=== PATIENT | female | born 1995 | race Two or more races ===

== ENCOUNTER 2019-02-26 19:20 | Observation (INO) | payer OTHER ==
[2019-02-26] MEDS ORDERED: Sodium Chloride 0.9% 2.5 ML Syringe FLUSH PRN (19:47)
[2019-02-26] MEDS ORDERED: Sodium Chloride 0.9% 10 ML Syringe FLUSH PRN (19:47)
--- NOTE | 2019-02-26 19:49 | EDM.PDOC ---
ED HPI GENERAL MEDICAL PROBLEM - General Chief Complaint: General Stated Complaint: PT BODY SWOLLEN Time Seen by Provider: 02/26/19 19:49 Source of Information: Reports: Patient History Limitations: Reports: No Limitations - History of Present Illness INITIAL COMMENTS - FREE TEXT/NARRATIVE: HISTORY AND PHYSICAL: History of present illness: Patient is a 23-year-old female here with complaint of lower extremity swelling. She states swelling started about 1 month ago, she saw a provider in [place] and was started on lasix. She states they did an echo of her heart which was negative and had labs done but was not told any specific diagnosis or follow up. She states the lasix was upsetting her stomach so she stopped it 2 days ago and all the swelling came back. She also notes having a lot of joint pain recently. She reports her mom has RA and another autoimmune disease but does not recall what it is. Review of systems: As per history of present illness and below otherwise all systems reviewed and negative. Past medical history: As per history of present illness and as reviewed below otherwise noncontributory. Surgical history: As per history of present illness and as reviewed below otherwise noncontributory. Social history: No reported history of drug or alcohol abuse. Family history: As per history of present illness and as reviewed below otherwise noncontributory. Physical exam: General: Patient sitting comfortably in no acute distress and nontoxic appearing HEENT: Atraumatic, normocephalic, pupils reactive, negative for conjunctival pallor or scleral icterus, mucous membranes moist, throat clear, neck supple, nontender, trachea midline. No meningeal signs. Lungs: Clear to auscultation, breath sounds equal bilaterally, chest nontender. Heart: S1S2, regular, negative for clicks, rubs, or overt murmur. Abdomen: Soft, nondistended, nontender. Negative for masses or hepatosplenomegaly. Negative for costovertebral tenderness. No rigidity, rebound , guarding. Pelvis: Stable nontender. Genitourinary: Deferred. Rectal: Deferred. Extremities: 3+ Atraumatic, negative for cords or calf pain. Neurovascular unremarkable. Neuro: Awake, alert, oriented. Cranial nerves II through XII unremarkable. Cerebellum unremarkable. Motor and sensory unremarkable throughout. Exam nonfocal. Notes: Patient's swelling improved after elevating while in the ED Diagnostics: CBC, CMP, UA Therapeutics: 1L Normal Saline IV 20mg Lasix IV Prescriptions: None Impression: Lower extremity edema, proteinuria, PRAVEEN Plan: Discussed with Dr. Arreola, patient will be admitted to observation. Definitive disposition and diagnosis as appropriate pending reevaluation and review of above. Bilateral Feet Pain Score (Numeric/FACES): 5 - Related Data Allergies Allergy/AdvReac Type Severity Reaction Status Date / Time No Known Allergies Allergy Verified 02/26/19 19:39 Home Meds: Home Meds . [Unable to Verify Home Med List] 02/26/19 [History] Past Medical History - Past Health History Medical/Surgical History: Denies Medical/Surgical History Psychiatric History: Reports: Depression - Infectious Disease History Infectious Disease History: Reports: None Social & Family History - Family History Family Medical History: Noncontributory - Tobacco Use Smoking Status *Q: Unknown Ever Smoked - Caffeine Use Caffeine Use: Reports: None - Recreational Drug Use Recreational Drug Use: No ED ROS GENERAL - Review of Systems Review Of Systems: ROS reveals no pertinent complaints other than HPI. ED EXAM, GENERAL - Physical Exam Exam: See Below (see dictation) Course - Vital Signs Last Recorded V/S: Last Vital Signs Temp 98.7 F 02/26/19 19:40 Pulse 78 02/26/19 20:44 Resp 18 02/26/19 20:44 BP 144/96 H 02/26/19 20:44 Pulse Ox 100 02/26/19 20:44 - Orders/Labs/Meds Orders: Active Orders 24 hr Category Date Time Status CULTURE URINE [RM] Stat Lab 02/26/19 19:45 Received Sodium Chloride 0.9% [Normal Saline] 1,000 ml Med 02/26/19 20:51 Ordered IV STAT Sodium Chloride 0.9% [Saline Flush] Med 02/26/19 19:47 Active 10 ml FLUSH ASDIRECTED PRN Sodium Chloride 0.9% [Saline Flush] Med 02/26/19 19:47 Active 2.5 ml FLUSH ASDIRECTED PRN Saline Lock Insert [OM.PC] Stat Oth 02/26/19 19:47 Ordered Medication Orders Sodium Chloride (Normal Saline) 1,000 mls @ 999 mls/hr IV STAT ONE Stop: 02/26/19 21:51 Sodium Chloride (Saline Flush) 10 ml FLUSH ASDIRECTED PRN PRN Reason: Keep Vein Open Sodium Chloride (Saline Flush) 2.5 ml FLUSH ASDIRECTED PRN PRN Reason: Keep Vein Open Labs: Laboratory Tests 02/26/19 02/26/19 02/26/19 Range/Units 19:45 19:45 19:54 WBC 6.46 (4.0-11.0) K/uL RBC 3.05 L (4.30-5.90) M/uL Hgb 8.6 L (12.0-16.0) g/dL Hct 26.3 L (36.0-46.0) % MCV 86.2 (80.0-98.0) fL MCH 28.2 (27.0-32.0) pg MCHC 32.7 (31.0-37.0) g/dL RDW Std Deviation 43.2 (28.0-62.0) fl RDW Coeff of Analisa 14 (11.0-15.0) % Plt Count 146 L (150-400) K/uL MPV 11.80 (7.40-12.00) fL Neut % (Auto) 68.8 (48.0-80.0) % Lymph % (Auto) 24.8 (16.0-40.0) % [place] % (Auto) 5.4 (0.0-15.0) % Eos % (Auto) 0.8 (0.0-7.0) % Baso % (Auto) 0.2 (0.0-1.5) % Neut # (Auto) 4.5 (1.4-5.7) K/uL Lymph # (Auto) 1.6 (0.6-2.4) K/uL [place] # (Auto) 0.4 (0.0-0.8) K/uL Eos # (Auto) 0.1 (0.0-0.7) K/uL Baso # (Auto) 0.0 (0.0-0.1) K/uL Nucleated RBC % 0.0 /100WBC Nucleated RBCs # 0 K/uL Sodium (136-145) mmol/L Potassium (3.5-5.1) mmol/L Chloride (98-107) mmol/L Carbon Dioxide (21.0-32.0) mmol/L BUN (7.0-18.0) mg/dL Creatinine (0.6-1.0) mg/dL Est Cr Clr Drug Dosing mL/min Estimated GFR (MDRD) ml/min Glucose (74-106) mg/dL Calcium (8.5-10.1) mg/dL Total Bilirubin (0.2-1.0) mg/dL AST (15-37) IU/L ALT (14-63) IU/L Alkaline Phosphatase (46-116) U/L Total Protein (6.4-8.2) g/dL Albumin (3.4-5.0) g/dL Globulin (2.6-4.0) g/dL Albumin/Globulin Ratio (0.9-1.6) Urine Color YELLOW Urine Appearance CLOUDY Urine pH 5.5 (5.0-8.0) Ur Specific [place] >= 1.030 (1.001-1.035) Urine Protein >=300 H (NEGATIVE) mg/dL Urine Glucose (UA) NEGATIVE (NEGATIVE) mg/dL Urine Ketones NEGATIVE (NEGATIVE) mg/dL Urine Occult Blood LARGE H (NEGATIVE) Urine Nitrite NEGATIVE (NEGATIVE) Urine Bilirubin NEGATIVE (NEGATIVE) Urine Urobilinogen 0.2 (<2.0) EU/dL Ur Leukocyte Esterase TRACE H (NEGATIVE) Urine RBC 22-29 (0-2/HPF) Urine WBC 6-9 (0-5/HPF) Ur Epithelial Cells MODERATE (NONE-FEW) Urine Bacteria 2+ H (NEGATIVE) Urine Mucus LIGHT (NONE-MOD) Urine HCG, Qual NEGATIVE (NEGATIVE) 02/26/19 Range/Units 19:55 WBC (4.0-11.0) K/uL RBC (4.30-5.90) M/uL Hgb (12.0-16.0) g/dL Hct (36.0-46.0) % MCV (80.0-98.0) fL MCH (27.0-32.0) pg MCHC (31.0-37.0) g/dL RDW Std Deviation (28.0-62.0) fl RDW Coeff of Analisa (11.0-15.0) % Plt Count (150-400) K/uL MPV (7.40-12.00) fL Neut % (Auto) (48.0-80.0) % Lymph % (Auto) (16.0-40.0) % [place] % (Auto) (0.0-15.0) % Eos % (Auto) (0.0-7.0) % Baso % (Auto) (0.0-1.5) % Neut # (Auto) (1.4-5.7) K/uL Lymph # (Auto) (0.6-2.4) K/uL [place] # (Auto) (0.0-0.8) K/uL Eos # (Auto) (0.0-0.7) K/uL Baso # (Auto) (0.0-0.1) K/uL Nucleated RBC % /100WBC Nucleated RBCs # K/uL Sodium 139 (136-145) mmol/L Potassium 4.7 (3.5-5.1) mmol/L Chloride 109 H (98-107) mmol/L Carbon Dioxide 23.4 (21.0-32.0) mmol/L BUN 36 H (7.0-18.0) mg/dL Creatinine 1.5 H (0.6-1.0) mg/dL Est Cr Clr Drug Dosing 41.41 mL/min Estimated GFR (MDRD) 42.7 ml/min Glucose 91 (74-106) mg/dL Calcium 8.3 L (8.5-10.1) mg/dL Total Bilirubin 0.5 (0.2-1.0) mg/dL AST 27 (15-37) IU/L ALT 18 (14-63) IU/L Alkaline Phosphatase 52 (46-116) U/L Total Protein 7.3 (6.4-8.2) g/dL Albumin 2.8 L (3.4-5.0) g/dL Globulin 4.5 H (2.6-4.0) g/dL Albumin/Globulin Ratio 0.6 L (0.9-1.6) Urine Color Urine Appearance Urine pH (5.0-8.0) Ur Specific [place] (1.001-1.035) Urine Protein (NEGATIVE) mg/dL Urine Glucose (UA) (NEGATIVE) mg/dL Urine Ketones (NEGATIVE) mg/dL Urine Occult Blood (NEGATIVE) Urine Nitrite (NEGATIVE) Urine Bilirubin (NEGATIVE) Urine Urobilinogen (<2.0) EU/dL Ur Leukocyte Esterase (NEGATIVE) Urine RBC (0-2/HPF) Urine WBC (0-5/HPF) Ur Epithelial Cells (NONE-FEW) Urine Bacteria (NEGATIVE) Urine Mucus (NONE-MOD) Urine HCG, Qual (NEGATIVE) Meds: Medications Generic Name Dose Route Start Last Admin Trade Name Robbin PRN Reason Stop Dose Admin Sodium Chloride 1,000 mls @ 999 mls/hr 02/26/19 20:51 Normal Saline IV 02/26/19 21:51 STAT ONE Sodium Chloride 10 ml 02/26/19 19:47 Saline Flush FLUSH ASDIRECTED PRN Keep Vein Open Sodium Chloride 2.5 ml 02/26/19 19:47 Saline Flush FLUSH ASDIRECTED PRN Keep Vein Open Departure - Departure Time of Disposition: 21:10 Disposition: Refer to Observation Condition: Good Clinical Impression: Proteinuria, PRAVEEN (acute kidney injury), Lower extremity edema - Discharge Information Referrals: PCP,None [Primary Care Provider] - Forms: ED Department Discharge - My Orders Last 24 Hours: My Active Orders 02/26/19 19:45 CULTURE URINE [RM] Stat 02/26/19 19:47 Sodium Chloride 0.9% [Saline Flush] 10 ml FLUSH ASDIRECTED PRN Sodium Chloride 0.9% [Saline Flush] 2.5 ml FLUSH ASDIRECTED PRN Saline Lock Insert [OM.PC] Stat 02/26/19 20:51 Sodium Chloride 0.9% [Normal Saline] 1,000 ml IV STAT - Assessment/Plan Last 24 Hours: My Active Orders 02/26/19 19:45 CULTURE URINE [RM] Stat 02/26/19 19:47 Sodium Chloride 0.9% [Saline Flush] 10 ml FLUSH ASDIRECTED PRN Sodium Chloride 0.9% [Saline Flush] 2.5 ml FLUSH ASDIRECTED PRN Saline Lock Insert [OM.PC] Stat 02/26/19 20:51 Sodium Chloride 0.9% [Normal Saline] 1,000 ml IV STAT
--- NOTE | 2019-02-26 20:39 | CR ---
HISTORY: Bilateral leg swelling. COMPARISON: None available FINDINGS: A portable erect AP view of the chest was obtained at 20/20 hours. The lungs are clear. No focal or diffuse infiltrates are present. The heart is normal in size. The mediastinum is normal in appearance. The osseous structures are normal in appearance for the patient`s age. IMPRESSION: Normal portable chest single view. Dictated by Christian Goodson MD @ Feb 26 2019 8:37PM Signed by Dr. Christian Goodson @ Feb 26 2019 8:38PM
[2019-02-26] MEDS ORDERED: Sodium Chloride 0.9% 1,000 ML IV ONE (20:51)
[2019-02-26] MEDS ORDERED: Furosemide 40 MG/4 ML VIAL IVPUSH ONE (21:04)
[2019-02-27] MEDS: cefTRIAXone 1 GM in Premix Bag 1 BAG IV SCH (08:50)
[2019-02-27] MEDS ORDERED: Pantoprazole 40 MG in Sodium Chloride 0.9% 100 ML IVPUSH SCH (09:15)
[2019-02-27] MEDS: Pantoprazole 40 MG Vial IV SCH (09:57)
--- NOTE | 2019-02-27 16:43 | PCM.HP ---
H&P History of Present Illness - General Date of Service: 02/27/19 Admit Problem/Dx: Admission Diagnosis/Problem Admission Diagnosis/Problem Proteinuria - History of Present Illness Initial Comments - Free Text/Narative: 23 y/o female with no significant PMH presenting to the ER complaining of worsening lower extremity edema and joint pain in her hands predominantly. Patient states that for the past 1 month she has been noticing her legs getting more swollen. In addition, she endorses a family history of rheumatoid arthritis in her mother. She is endorsing gradual loss of hair over the past few months, myalgias and worsening hand joint pain, swelling. No headaches, change in vision, chest pain, dyspnea, abdominal pain, dysuria, diarrhea, blood in stool. No rashes on face or body. Denies any history of cancer. Bilateral Feet Pain Score (Numeric/FACES): 0 - Related Data Allergies/Adverse Reactions: Allergies Allergy/AdvReac Type Severity Reaction Status Date / Time No Known Allergies Allergy Verified 02/27/19 08:54 Home Medications: Home Meds Furosemide 40 mg PO DAILY 02/27/19 [History] Lisinopril 5 mg PO DAILY 02/27/19 [History] Potassium Chloride [Klor-Con M20] 20 meq PO DAILY 02/27/19 [History] Past Medical History - Past Health History Medical/Surgical History: Denies Medical/Surgical History Musculoskeletal History: Reports: Other (See Below) Other Musculoskeletal History: joint pain in her hands Psychiatric History: Reports: Depression - Infectious Disease History Infectious Disease History: Reports: None - Past Surgical History HEENT Surgical History: Reports: Other (See Below) Other HEENT Surgeries/Procedures: nose reconstruction Social & Family History - Family History Family Medical History: Noncontributory - Tobacco Use Smoking Status *Q: Never Smoker Second Hand Smoke Exposure: No - Caffeine Use Caffeine Use: Reports: Coffee, Energy Drinks, Soda, Tea - Alcohol Use Days Per Week of Alcohol Use: 1 Number of Drinks Per Day: 5 Total Drinks Per Week: 5 - Recreational Drug Use Recreational Drug Use: No H&P Review of Systems - Review of Systems: Review Of Systems: ROS reveals no pertinent complaints other than HPI. Exam - Exam Exam: See Below - Vital Signs Vital Signs: Last Vital Signs Temp 37.7 C 02/27/19 16:00 Pulse 79 06/27/19 16:00 Resp 15 02/27/19 16:00 BP 131/86 02/27/19 16:00 Pulse Ox 99 02/27/19 16:00 Weight: 49.1 kg - Exam General: Alert, Oriented, Cooperative HEENT: Conjunctiva Clear, Other (pale conjunctiva) Lungs: Clear to Auscultation, Normal Respiratory Effort. No: Crackles, Wheezing Cardiovascular: Regular Rate, Regular Rhythm. No: Systolic Murmur, Diastolic Murmur GI/Abdominal Exam: Normal Bowel Sounds, Soft, Non-Tender, No Distention Back Exam: Normal Inspection Extremities: Other (1+ pitting edema bilaterally up to knees, no rash) Skin: Warm, Dry Neuro Extensive - Mental Status: Alert, Oriented x3 - Patient Data Lab Results Last 24 hrs: Laboratory Results - last 24 hr 02/26/19 02/26/19 02/26/19 Range/Units 19:45 19:45 19:54 WBC 6.46 (4.0-11.0) K/uL RBC 3.05 L (4.30-5.90) M/uL Hgb 8.6 L (12.0-16.0) g/dL Hct 26.3 L (36.0-46.0) % MCV 86.2 (80.0-98.0) fL MCH 28.2 (27.0-32.0) pg MCHC 32.7 (31.0-37.0) g/dL RDW Std Deviation 43.2 (28.0-62.0) fl RDW Coeff of Analisa 14 (11.0-15.0) % Plt Count 146 L (150-400) K/uL MPV 11.80 (7.40-12.00) fL Neut % (Auto) 68.8 (48.0-80.0) % Lymph % (Auto) 24.8 (16.0-40.0) % [place] % (Auto) 5.4 (0.0-15.0) % Eos % (Auto) 0.8 (0.0-7.0) % Baso % (Auto) 0.2 (0.0-1.5) % Neut # (Auto) 4.5 (1.4-5.7) K/uL Lymph # (Auto) 1.6 (0.6-2.4) K/uL Flagler # (Auto) 0.4 (0.0-0.8) K/uL Eos # (Auto) 0.1 (0.0-0.7) K/uL Baso # (Auto) 0.0 (0.0-0.1) K/uL Nucleated RBC % 0.0 /100WBC Nucleated RBCs # 0 K/uL Smear Path Review ESR (0-19) mm/hr Sodium (136-145) mmol/L Potassium (3.5-5.1) mmol/L Chloride (98-107) mmol/L Carbon Dioxide (21.0-32.0) mmol/L BUN (7.0-18.0) mg/dL Creatinine (0.6-1.0) mg/dL Est Cr Clr Drug Dosing mL/min Estimated GFR (MDRD) ml/min Glucose (74-106) mg/dL Calcium (8.5-10.1) mg/dL Iron (50-175) ug/dL TIBC (250-450) ug/dL % Saturation (20-55) % Ferritin (8-252) ng/mL Total Bilirubin (0.2-1.0) mg/dL AST (15-37) IU/L ALT (14-63) IU/L Alkaline Phosphatase (46-116) U/L Lactate Dehydrogenase (81-234) U/L Creatine Kinase (26-308) U/L C-Reactive Protein (0.00-0.90) mg/dL Total Protein (6.4-8.2) g/dL Albumin (3.4-5.0) g/dL Globulin (2.6-4.0) g/dL Albumin/Globulin Ratio (0.9-1.6) Urine Color YELLOW Urine Appearance CLOUDY Urine pH 5.5 (5.0-8.0) Ur Specific Thornton >= 1.030 (1.001-1.035) Urine Protein >=300 H (NEGATIVE) mg/dL Urine Glucose (UA) NEGATIVE (NEGATIVE) mg/dL Urine Ketones NEGATIVE (NEGATIVE) mg/dL Urine Occult Blood LARGE H (NEGATIVE) Urine Nitrite NEGATIVE (NEGATIVE) Urine Bilirubin NEGATIVE (NEGATIVE) Urine Urobilinogen 0.2 (<2.0) EU/dL Ur Leukocyte Esterase TRACE H (NEGATIVE) Urine RBC 22-29 (0-2/HPF) Urine WBC 6-9 (0-5/HPF) Ur Epithelial Cells MODERATE (NONE-FEW) Urine Bacteria 2+ H (NEGATIVE) Urine Mucus LIGHT (NONE-MOD) Urine HCG, Qual NEGATIVE (NEGATIVE) Rheumatoid Factor Scrn Rheumatoid Factor Titer Blood Type Antibody Screen Prewarmed Antibody Srcn Antibody Identification Cold Antibody Screen ROGER, IgG Interpret (NEGATIVE) ROGER, Poly Interpret (NEGATIVE) Crossmatch 02/26/19 02/26/19 02/27/19 Range/Units 19:55 19:55 04:45 WBC (4.0-11.0) K/uL RBC (4.30-5.90) M/uL Hgb (12.0-16.0) g/dL Hct (36.0-46.0) % MCV (80.0-98.0) fL MCH (27.0-32.0) pg MCHC (31.0-37.0) g/dL RDW Std Deviation (28.0-62.0) fl RDW Coeff of Analisa (11.0-15.0) % Plt Count (150-400) K/uL MPV (7.40-12.00) fL Neut % (Auto) (48.0-80.0) % Lymph % (Auto) (16.0-40.0) % Flagler % (Auto) (0.0-15.0) % Eos % (Auto) (0.0-7.0) % Baso % (Auto) (0.0-1.5) % Neut # (Auto) (1.4-5.7) K/uL Lymph # (Auto) (0.6-2.4) K/uL Flagler # (Auto) (0.0-0.8) K/uL Eos # (Auto) (0.0-0.7) K/uL Baso # (Auto) (0.0-0.1) K/uL Nucleated RBC % /100WBC Nucleated RBCs # K/uL Smear Path Review ESR > 140 H (0-19) mm/hr Sodium 139 (136-145) mmol/L Potassium 4.7 (3.5-5.1) mmol/L Chloride 109 H (98-107) mmol/L Carbon Dioxide 23.4 (21.0-32.0) mmol/L BUN 36 H (7.0-18.0) mg/dL Creatinine 1.5 H (0.6-1.0) mg/dL Est Cr Clr Drug Dosing 41.41 mL/min Estimated GFR (MDRD) 42.7 ml/min Glucose 91 (74-106) mg/dL Calcium 8.3 L (8.5-10.1) mg/dL Iron (50-175) ug/dL TIBC (250-450) ug/dL % Saturation (20-55) % Ferritin (8-252) ng/mL Total Bilirubin 0.5 (0.2-1.0) mg/dL AST 27 (15-37) IU/L ALT 18 (14-63) IU/L Alkaline Phosphatase 52 (46-116) U/L Lactate Dehydrogenase (81-234) U/L Creatine Kinase 50 (26-308) U/L C-Reactive Protein (0.00-0.90) mg/dL Total Protein 7.3 (6.4-8.2) g/dL Albumin 2.8 L (3.4-5.0) g/dL Globulin 4.5 H (2.6-4.0) g/dL Albumin/Globulin Ratio 0.6 L (0.9-1.6) Urine Color Urine Appearance Urine pH (5.0-8.0) Ur Specific Thornton (1.001-1.035) Urine Protein (NEGATIVE) mg/dL Urine Glucose (UA) (NEGATIVE) mg/dL Urine Ketones (NEGATIVE) mg/dL Urine Occult Blood (NEGATIVE) Urine Nitrite (NEGATIVE) Urine Bilirubin (NEGATIVE) Urine Urobilinogen (<2.0) EU/dL Ur Leukocyte Esterase (NEGATIVE) Urine RBC (0-2/HPF) Urine WBC (0-5/HPF) Ur Epithelial Cells (NONE-FEW) Urine Bacteria (NEGATIVE) Urine Mucus (NONE-MOD) Urine HCG, Qual (NEGATIVE) Rheumatoid Factor Scrn Rheumatoid Factor Titer Blood Type Antibody Screen Prewarmed Antibody Srcn Antibody Identification Cold Antibody Screen ROGER, IgG Interpret (NEGATIVE) ROGER, Poly Interpret (NEGATIVE) Crossmatch 02/27/19 02/27/19 02/27/19 Range/Units 04:45 04:45 04:45 WBC 4.58 (4.0-11.0) K/uL RBC 2.30 L (4.30-5.90) M/uL Hgb 6.6 L (12.0-16.0) g/dL Hct 20.3 L (36.0-46.0) % MCV 88.3 (80.0-98.0) fL MCH 28.7 (27.0-32.0) pg MCHC 32.5 (31.0-37.0) g/dL RDW Std Deviation 44.3 (28.0-62.0) fl RDW Coeff of Analisa 14 (11.0-15.0) % Plt Count 114 L (150-400) K/uL MPV 12.40 H (7.40-12.00) fL Neut % (Auto) 65.3 (48.0-80.0) % Lymph % (Auto) 27.7 (16.0-40.0) % Flag[place] % (Auto) 5.9 (0.0-15.0) % Eos % (Auto) 0.9 (0.0-7.0) % Baso % (Auto) 0.2 (0.0-1.5) % Neut # (Auto) 3.0 (1.4-5.7) K/uL Lymph # (Auto) 1.3 (0.6-2.4) K/uL Flagler # (Auto) 0.3 (0.0-0.8) K/uL Eos # (Auto) 0.0 (0.0-0.7) K/uL Baso # (Auto) 0.0 (0.0-0.1) K/uL Nucleated RBC % 0.0 /100WBC Nucleated RBCs # 0 K/uL Smear Path Review ESR (0-19) mm/hr Sodium (136-145) mmol/L Potassium (3.5-5.1) mmol/L Chloride (98-107) mmol/L Carbon Dioxide (21.0-32.0) mmol/L BUN (7.0-18.0) mg/dL Creatinine (0.6-1.0) mg/dL Est Cr Clr Drug Dosing mL/min Estimated GFR (MDRD) ml/min Glucose (74-106) mg/dL Calcium (8.5-10.1) mg/dL Iron (50-175) ug/dL TIBC (250-450) ug/dL % Saturation (20-55) % Ferritin (8-252) ng/mL Total Bilirubin (0.2-1.0) mg/dL AST (15-37) IU/L ALT (14-63) IU/L Alkaline Phosphatase (46-116) U/L Lactate Dehydrogenase (81-234) U/L Creatine Kinase (26-308) U/L C-Reactive Protein < 0.20 (0.00-0.90) mg/dL Total Protein (6.4-8.2) g/dL Albumin (3.4-5.0) g/dL Globulin (2.6-4.0) g/dL Albumin/Globulin Ratio (0.9-1.6) Urine Color Urine Appearance Urine pH (5.0-8.0) Ur Specific Thornton (1.001-1.035) Urine Protein (NEGATIVE) mg/dL Urine Glucose (UA) (NEGATIVE) mg/dL Urine Ketones (NEGATIVE) mg/dL Urine Occult Blood (NEGATIVE) Urine Nitrite (NEGATIVE) Urine Bilirubin (NEGATIVE) Urine Urobilinogen (<2.0) EU/dL Ur Leukocyte Esterase (NEGATIVE) Urine RBC (0-2/HPF) Urine WBC (0-5/HPF) Ur Epithelial Cells (NONE-FEW) Urine Bacteria (NEGATIVE) Urine Mucus (NONE-MOD) Urine HCG, Qual (NEGATIVE) Rheumatoid Factor Scrn POSITIVE H Rheumatoid Factor Titer 1:2 Blood Type Antibody Screen Prewarmed Antibody Srcn Antibody Identification Cold Antibody Screen ROGER, IgG Interpret (NEGATIVE) ROGER, Poly Interpret (NEGATIVE) Crossmatch 02/27/19 02/27/19 02/27/19 Range/Units 04:45 04:45 04:45 WBC (4.0-11.0) K/uL RBC (4.30-5.90) M/uL Hgb (12.0-16.0) g/dL Hct (36.0-46.0) % MCV (80.0-98.0) fL MCH (27.0-32.0) pg MCHC (31.0-37.0) g/dL RDW Std Deviation (28.0-62.0) fl RDW Coeff of Analisa (11.0-15.0) % Plt Count (150-400) K/uL MPV (7.40-12.00) fL Neut % (Auto) (48.0-80.0) % Lymph % (Auto) (16.0-40.0) % [place] % (Auto) (0.0-15.0) % Eos % (Auto) (0.0-7.0) % Baso % (Auto) (0.0-1.5) % Neut # (Auto) (1.4-5.7) K/uL Lymph # (Auto) (0.6-2.4) K/uL [place]ler # (Auto) (0.0-0.8) K/uL Eos # (Auto) (0.0-0.7) K/uL Baso # (Auto) (0.0-0.1) K/uL Nucleated RBC % /100WBC Nucleated RBCs # K/uL Smear Path Review SENT TO PATHOLOGY ESR (0-19) mm/hr Sodium 142 (136-145) mmol/L Potassium 4.6 (3.5-5.1) mmol/L Chloride 113 H (98-107) mmol/L Carbon Dioxide 21.6 (21.0-32.0) mmol/L BUN 33 H (7.0-18.0) mg/dL Creatinine 1.2 H (0.6-1.0) mg/dL Est Cr Clr Drug Dosing 51.92 mL/min Estimated GFR (MDRD) 55.2 ml/min Glucose 95 (74-106) mg/dL Calcium 7.4 L (8.5-10.1) mg/dL Iron 30 L (50-175) ug/dL TIBC 172 L (250-450) ug/dL % Saturation 17.44 L (20-55) % Ferritin 162 (8-252) ng/mL Total Bilirubin 0.3 (0.2-1.0) mg/dL AST 16 (15-37) IU/L ALT 12 L (14-63) IU/L Alkaline Phosphatase 47 (46-116) U/L Lactate Dehydrogenase (81-234) U/L Creatine Kinase (26-308) U/L C-Reactive Protein (0.00-0.90) mg/dL Total Protein 5.4 L (6.4-8.2) g/dL Albumin 2.0 L (3.4-5.0) g/dL Globulin 3.4 (2.6-4.0) g/dL Albumin/Globulin Ratio 0.6 L (0.9-1.6) Urine Color Urine Appearance Urine pH (5.0-8.0) Ur Specific Thornton (1.001-1.035) Urine Protein (NEGATIVE) mg/dL Urine Glucose (UA) (NEGATIVE) mg/dL Urine Ketones (NEGATIVE) mg/dL Urine Occult Blood (NEGATIVE) Urine Nitrite (NEGATIVE) Urine Bilirubin (NEGATIVE) Urine Urobilinogen (<2.0) EU/dL Ur Leukocyte Esterase (NEGATIVE) Urine RBC (0-2/HPF) Urine WBC (0-5/HPF) Ur Epithelial Cells (NONE-FEW) Urine Bacteria (NEGATIVE) Urine Mucus (NONE-MOD) Urine HCG, Qual (NEGATIVE) Rheumatoid Factor Scrn Rheumatoid Factor Titer Blood Type Antibody Screen Prewarmed Antibody Srcn Antibody Identification Cold Antibody Screen ROGER, IgG Interpret (NEGATIVE) ROGER, Poly Interpret (NEGATIVE) Crossmatch 02/27/19 02/27/19 Range/Units 04:45 08:00 WBC (4.0-11.0) K/uL RBC (4.30-5.90) M/uL Hgb (12.0-16.0) g/dL Hct (36.0-46.0) % MCV (80.0-98.0) fL MCH (27.0-32.0) pg MCHC (31.0-37.0) g/dL RDW Std Deviation (28.0-62.0) fl RDW Coeff of Analisa (11.0-15.0) % Plt Count (150-400) K/uL MPV (7.40-12.00) fL Neut % (Auto) (48.0-80.0) % Lymph % (Auto) (16.0-40.0) % [place] % (Auto) (0.0-15.0) % Eos % (Auto) (0.0-7.0) % Baso % (Auto) (0.0-1.5) % Neut # (Auto) (1.4-5.7) K/uL Lymph # (Auto) (0.6-2.4) K/uL [place] # (Auto) (0.0-0.8) K/uL Eos # (Auto) (0.0-0.7) K/uL Baso # (Auto) (0.0-0.1) K/uL Nucleated RBC % /100WBC Nucleated RBCs # K/uL Smear Path Review ESR (0-19) mm/hr Sodium (136-145) mmol/L Potassium (3.5-5.1) mmol/L Chloride (98-107) mmol/L Carbon Dioxide (21.0-32.0) mmol/L BUN (7.0-18.0) mg/dL Creatinine (0.6-1.0) mg/dL Est Cr Clr Drug Dosing mL/min Estimated GFR (MDRD) ml/min Glucose (74-106) mg/dL Calcium (8.5-10.1) mg/dL Iron (50-175) ug/dL TIBC (250-450) ug/dL % Saturation (20-55) % Ferritin (8-252) ng/mL Total Bilirubin (0.2-1.0) mg/dL AST (15-37) IU/L ALT (14-63) IU/L Alkaline Phosphatase (46-116) U/L Lactate Dehydrogenase 292 H (81-234) U/L Creatine Kinase (26-308) U/L C-Reactive Protein (0.00-0.90) mg/dL Total Protein (6.4-8.2) g/dL Albumin (3.4-5.0) g/dL Globulin (2.6-4.0) g/dL Albumin/Globulin Ratio (0.9-1.6) Urine Color Urine Appearance Urine pH (5.0-8.0) Ur Specific Thornton (1.001-1.035) Urine Protein (NEGATIVE) mg/dL Urine Glucose (UA) (NEGATIVE) mg/dL Urine Ketones (NEGATIVE) mg/dL Urine Occult Blood (NEGATIVE) Urine Nitrite (NEGATIVE) Urine Bilirubin (NEGATIVE) Urine Urobilinogen (<2.0) EU/dL Ur Leukocyte Esterase (NEGATIVE) Urine RBC (0-2/HPF) Urine WBC (0-5/HPF) Ur Epithelial Cells (NONE-FEW) Urine Bacteria (NEGATIVE) Urine Mucus (NONE-MOD) Urine HCG, Qual (NEGATIVE) Rheumatoid Factor Scrn Rheumatoid Factor Titer Blood Type O POSITIVE Antibody Screen POSITIVE Prewarmed Antibody Srcn POSITIVE Antibody Identification Cancelled Cold Antibody Screen POSITIVE ROGER, IgG Interpret POSITIVE (NEGATIVE) ROGER, Poly Interpret POSITIVE (NEGATIVE) Crossmatch See Detail Result Diagrams: 02/27/19 04:45 02/27/19 04:45 Can Results Last 24 hrs: Microbiology 02/27/19 13:50 Stool Occult Blood (CAN) - Final Stool / Feces NEGATIVE OCCULT BLOOD REFERENCE RANGE: NEGATIVE Problem List Initiated/Reviewed/Updated: Yes Orders Last 24hrs: Active Orders 24 hr Category Date Time Status Admission Status [Patient Status] [ADT] Stat ADT 02/26/19 21:11 Active Antiembolic Devices [RC] Q12H Care 02/26/19 23:40 Active Daily Weight [Height and Weight] [RC] DAILY Care 02/27/19 09:06 Active Oxygen Therapy [RC] PRN Care 02/26/19 23:40 Active Up ad Rachel [RC] ASDIRECTED Care 02/26/19 23:40 Active VTE/DVT Education [RC] PER UNIT ROUTINE Care 02/26/19 23:40 Active Verify Patient Consent Obtain [RC] ASDIRECTED Care 02/27/19 12:19 Active Vital Signs [RC] Q4H Care 02/26/19 23:40 Active AB SCREEN PREWARM [BBK] Routine Lab 02/27/19 08:00 Results MONICA W/REFLEX [REF] Routine Lab 02/26/19 23:58 Received ANTI-DNA (DS) AB QN [REF] Routine Lab 02/27/19 04:45 Received ANTIBODY ID [REF] Routine Lab 02/27/19 13:25 Received CCP ANTIBODIES IGG/IGA [REF] Routine Lab 02/26/19 23:49 Received COLD ABS [BBK] Routine Lab 02/27/19 08:00 Results COMPLEMENT, TOTAL (CH50) [REF] Routine Lab 02/26/19 23:58 Received CULTURE URINE [RM] Stat Lab 02/26/19 19:45 Received DIRECT JOSE [BBK] Routine Lab 02/27/19 08:00 Results LUPUS ANTICOAGULANT PANEL [REF] Routine Lab 02/27/19 04:45 Received PROTEIN/CREATININE,URINE 24HR [URCHEM] Routine Lab 02/26/19 23:58 Ordered RED BLOOD CELLS LP [BBK] Routine Lab 02/27/19 08:00 Results TYPE AND SCREEN [BBK] Routine Lab 02/27/19 08:00 Results Pantoprazole [ProTONIX IV] Med 02/27/19 09:30 Active 40 mg IV Q24H Sodium Chloride 0.9% [Saline Flush] Med 02/26/19 19:47 Active 10 ml FLUSH ASDIRECTED PRN Sodium Chloride 0.9% [Saline Flush] [facility] 02/26/19 19:47 Active 2.5 ml FLUSH ASDIRECTED PRN cefTRIAXone [Rocephin in Dextrose,Iso-Osm 1 GM/50 ML] 1 [facility] 02/27/19 08:00 Active gm Premix Bag 1 bag IV Q24H Saline Lock Insert [OM.PC] Stat Ot 02/26/19 19:47 Ordered Sequential Compression Device [OM.PC] Per Unit Routine Ot 02/26/19 23:40 Ordered Transfuse Red Blood Cells [COMM] Routine Ot 02/27/19 12:18 Ordered Resuscitation Status Routine Resus Stat 02/26/19 23:40 Ordered Medication Orders Ceftriaxone Sodium/Dextrose 1 (gm/ Premix) 50 mls @ 100 mls/hr IV Q24H [facility] Last Admin: 02/27/19 08:50 Dose: 100 mls/hr Pantoprazole Sodium (Protonix Iv) 40 mg IV Q24H [facility] Last Admin: 02/27/19 09:57 Dose: 40 mg Sodium Chloride (Saline Flush) 10 ml FLUSH ASDIRECTED PRN PRN Reason: Keep Vein Open Sodium Chloride (Saline Flush) 2.5 ml FLUSH ASDIRECTED PRN PRN Reason: Keep Vein Open Assessment/Plan Comment:: A: 1. Normocytic anemia 2. Lower extremity edema 3. Hand Arthralgias 4. Acute kidney injury 5. Proteinuria 6. Hematuria 7. UTI 8. Thrombocytopenia 9. Elevated inflammatory marker P: 1. Normocytic anemia, Hg 6.6. Tried to transfuse 2 units PRBCs but Jose positive. Will need leukoirradiated PRBCs. Should be here tomorrow and will transfuse then. Not sure she is hemolyzing since T. bili normal and LDH borderline normal. 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 still pending on final lab results for autoimmune work-up. Will give prednisone 40 mg PO daily and see if that helps with symptoms. Tried to get in touch with shooter helper in [facility] but they were not available. Will try again tomorrow. 2. Lower extremity edema- Likely has nephrotic syndrome. 24 hour urine protein is still pending. Will get in touch with nephrology tomorrow. 3. Acute kidney injury- likely nephrotic syndrome. Will wait for 24 hour urine protein. Continue to monitor. 4. UTI- started ceftriaxone. Dispo:1-2 days
[2019-02-27] MEDS: predniSONE 20 MG Tab PO SCH (18:04)
[2019-02-27] MEDS ORDERED: traMADol 50 MG Tab PO PRN (19:09)
[2019-02-28 05:50] LABS: CHLORIDE,CL 109 mmol/L (98-107); SODIUM,NA 137 mmol/L (136-145)
[2019-02-28] MEDS: predniSONE 20 MG Tab PO SCH (07:45)
[2019-02-28] MEDS: cefTRIAXone 1 GM in Premix Bag 1 BAG IV SCH (07:46)
[2019-02-28] MEDS: Lisinopril 5 MG Tab PO SCH (09:27)
[2019-02-28] MEDS: Pantoprazole 40 MG Vial IV SCH (09:34)
--- NOTE | 2019-02-28 10:49 | PCM.PN ---
- General Info Date of Service: 02/28/19 Subjective Update: no acute events overnight. Afebrile. This morning, states feeling better. Has been walking with physical therapy. Denies any headaches, change in vision, chest pain, dyspnea, abdominal pain, dysuria, diarrhea, rashes. - Patient Data Vitals - Most Recent: Last Vital Signs Temp 36.8 C 02/28/19 07:00 Pulse 52 L 02/28/19 03:00 Resp 18 02/28/19 07:00 BP 137/96 H 02/28/19 09:27 Pulse Ox 98 02/28/19 07:00 Weight - Most Recent: 49.5 kg I&O - Last 24 Hours: Intake & Output 02/27/19 02/28/19 02/28/19 22:59 06:59 14:59 Intake Total 970 900 50 Output Total 600 750 Balance 370 150 50 Lab Results Last 24 Hours: Laboratory Results - last 24 hr 02/27/19 02/27/19 02/27/19 Range/Units 04:45 04:45 08:00 WBC (4.0-11.0) K/uL RBC (4.30-5.90) M/uL Hgb (12.0-16.0) g/dL Hct (36.0-46.0) % MCV (80.0-98.0) fL MCH (27.0-32.0) pg MCHC (31.0-37.0) g/dL RDW Std Deviation (28.0-62.0) fl RDW Coeff of Analisa (11.0-15.0) % Plt Count (150-400) K/uL MPV (7.40-12.00) fL Nucleated RBC % /100WBC Nucleated RBCs # K/uL Sodium (136-145) mmol/L Potassium (3.5-5.1) mmol/L Chloride (98-107) mmol/L Carbon Dioxide (21.0-32.0) mmol/L BUN (7.0-18.0) mg/dL Creatinine (0.6-1.0) mg/dL Est Cr Clr Drug Dosing mL/min Estimated GFR (MDRD) ml/min Glucose (74-106) mg/dL Calcium (8.5-10.1) mg/dL Total Bilirubin (0.2-1.0) mg/dL AST (15-37) IU/L ALT (14-63) IU/L Alkaline Phosphatase (46-116) U/L Lactate Dehydrogenase Cancelled Total Protein (6.4-8.2) g/dL Albumin (3.4-5.0) g/dL Globulin (2.6-4.0) g/dL Albumin/Globulin Ratio (0.9-1.6) Free T4 (0.76-1.46) ng/dL Free T3 (2.18-3.98) pg/mL TSH 3rd Generation 7.85 H (0.36-3.74) uIU/mL Ur Collection Duration Urine Total Volume (800-1800) Ur Creatinine 24 Hour (0932-8020) mg/24HRS Ur Creatinine Concen (2.20-135.10) mg/dL Ur Total Protein Conc (0-14) mg/dL Ur Total Protein 24 Hr mg/24HRS Protein/Creat Ratio 24h Blood Type O POSITIVE Antibody Screen POSITIVE Prewarmed Antibody Srcn POSITIVE Antibody Identification Cancelled Cold Antibody Screen POSITIVE ROGER, IgG Interpret POSITIVE (NEGATIVE) ROGER, Poly Interpret POSITIVE (NEGATIVE) Crossmatch See Detail 02/28/19 02/28/19 02/28/19 Range/Units 04:45 04:45 04:45 WBC 3.28 L (4.0-11.0) K/uL RBC 2.74 L (4.30-5.90) M/uL Hgb 7.7 L (12.0-16.0) g/dL Hct 23.4 L (36.0-46.0) % MCV 85.4 (80.0-98.0) fL MCH 28.1 (27.0-32.0) pg MCHC 32.9 (31.0-37.0) g/dL RDW Std Deviation 42.1 (28.0-62.0) fl RDW Coeff of Analisa 14 (11.0-15.0) % Plt Count 122 L (150-400) K/uL MPV 11.70 (7.40-12.00) fL Nucleated RBC % 0.0 /100WBC Nucleated RBCs # 0 K/uL Sodium 137 (136-145) mmol/L Potassium 5.2 H (3.5-5.1) mmol/L Chloride 109 H (98-107) mmol/L Carbon Dioxide 22.1 (21.0-32.0) mmol/L BUN 37 H (7.0-18.0) mg/dL Creatinine 1.1 H (0.6-1.0) mg/dL Est Cr Clr Drug Dosing 56.64 mL/min Estimated GFR (MDRD) > 60.0 ml/min Glucose 148 H (74-106) mg/dL Calcium 7.8 L (8.5-10.1) mg/dL Total Bilirubin 0.3 (0.2-1.0) mg/dL AST 19 (15-37) IU/L ALT 12 L (14-63) IU/L Alkaline Phosphatase 42 L (46-116) U/L Lactate Dehydrogenase 325 H Total Protein 6.0 L (6.4-8.2) g/dL Albumin 2.0 L (3.4-5.0) g/dL Globulin 4.0 (2.6-4.0) g/dL Albumin/Globulin Ratio 0.5 L (0.9-1.6) Free T4 1.07 (0.76-1.46) ng/dL Free T3 1.33 L (2.18-3.98) pg/mL TSH 3rd Generation (0.36-3.74) uIU/mL Ur Collection Duration Urine Total Volume (800-1800) Ur Creatinine 24 Hour (7409-4338) mg/24HRS Ur Creatinine Concen (2.20-135.10) mg/dL Ur Total Protein Conc (0-14) mg/dL Ur Total Protein 24 Hr mg/24HRS Protein/Creat Ratio 24h Blood Type Antibody Screen Prewarmed Antibody Srcn Antibody Identification Cold Antibody Screen ROGER, IgG Interpret (NEGATIVE) ROGER, Poly Interpret (NEGATIVE) Crossmatch 02/28/19 Range/Units 08:15 WBC (4.0-11.0) K/uL RBC (4.30-5.90) M/uL Hgb (12.0-16.0) g/dL Hct (36.0-46.0) % MCV (80.0-98.0) fL MCH (27.0-32.0) pg MCHC (31.0-37.0) g/dL RDW Std Deviation (28.0-62.0) fl RDW Coeff of Analisa (11.0-15.0) % Plt Count (150-400) K/uL MPV (7.40-12.00) fL Nucleated RBC % /100WBC Nucleated RBCs # K/uL Sodium (136-145) mmol/L Potassium (3.5-5.1) mmol/L Chloride (98-107) mmol/L Carbon Dioxide (21.0-32.0) mmol/L BUN (7.0-18.0) mg/dL Creatinine (0.6-1.0) mg/dL Est Cr Clr Drug Dosing mL/min Estimated GFR (MDRD) ml/min Glucose (74-106) mg/dL Calcium (8.5-10.1) mg/dL Total Bilirubin (0.2-1.0) mg/dL AST (15-37) IU/L ALT (14-63) IU/L Alkaline Phosphatase (46-116) U/L Lactate Dehydrogenase Total Protein (6.4-8.2) g/dL Albumin (3.4-5.0) g/dL Globulin (2.6-4.0) g/dL Albumin/Globulin Ratio (0.9-1.6) Free T4 (0.76-1.46) ng/dL Free T3 (2.18-3.98) pg/mL TSH 3rd Generation (0.36-3.74) uIU/mL Ur Collection Duration 24 Urine Total Volume 1000 (800-1800) Ur Creatinine 24 Hour 799.7 L (2455-9812) mg/24HRS Ur Creatinine Concen 79.97 (2.20-135.10) mg/dL Ur Total Protein Conc 296.8 H (0-14) mg/dL Ur Total Protein 24 Hr 2968.0 mg/24HRS Protein/Creat Ratio 24h 3.7 Blood Type Antibody Screen Prewarmed Antibody Srcn Antibody Identification Cold Antibody Screen ROGER, IgG Interpret (NEGATIVE) ROGER, Poly Interpret (NEGATIVE) Crossmatch Can Results Last 24 Hours: Microbiology 02/26/19 19:45 Urine Culture - Final Urine, Clean Catch MIXED DEQUNA 1,000-10,000 CFU/ML 02/27/19 13:50 Stool Occult Blood (CAN) - Final Stool / Feces NEGATIVE OCCULT BLOOD REFERENCE RANGE: NEGATIVE Med Orders - Current: Current Medications Ceftriaxone Sodium/Dextrose 1 (gm/ Premix) 50 mls @ 100 mls/hr IV Q24H [facility] Last Admin: 02/28/19 07:46 Dose: 100 mls/hr Insulin Aspart (Novolog) 0 unit SUBCUT TIDAC [facility]; Protocol Lisinopril (Prinivil) 5 mg PO DAILY [facility] Last Admin: 02/28/19 09:27 Dose: 5 mg Pantoprazole Sodium (Protonix Iv) 40 mg IV Q24H [facility] Last Admin: 02/28/19 09:34 Dose: 40 mg Prednisone (Prednisone) 40 mg PO WITHBREAKFAST [facility] Last Admin: 02/28/19 07:45 Dose: 40 mg Sodium Chloride (Saline Flush) 10 ml FLUSH ASDIRECTED PRN PRN Reason: Keep Vein Open Sodium Chloride (Saline Flush) 2.5 ml FLUSH ASDIRECTED PRN PRN Reason: Keep Vein Open Tramadol HCl (Ultram) 50 mg PO Q6H PRN PRN Reason: Pain Discontinued Medications Furosemide (Lasix) 20 mg IVPUSH NOW ONE Stop: 02/26/19 21:05 Last Admin: 02/26/19 21:14 Dose: 20 mg Sodium Chloride (Normal Saline) 1,000 mls @ 999 mls/hr IV STAT ONE Stop: 02/26/19 21:51 Last Admin: 02/26/19 21:14 Dose: 999 mls/hr - Exam General: Alert, Oriented, Cooperative, No Acute Distress Lungs: Clear to Auscultation, Normal Respiratory Effort. No: Crackles, Wheezing Cardiovascular: Regular Rate, Regular Rhythm GI/Abdominal Exam: Normal Bowel Sounds, Soft, Non-Tender Extremities: Other (Mild pedal edema) Skin: Warm, Dry - Problem List Review Problem List Initiated/Reviewed/Updated: Yes - My Orders Last 24 Hours: My Active Orders 02/27/19 12:18 Transfuse Red Blood Cells [COMM] Routine 02/27/19 12:19 Verify Patient Consent Obtain [RC] ASDIRECTED 02/27/19 17:30 predniSONE 40 mg PO WITHBREAKFAST 02/27/19 19:09 traMADol [Ultram] 50 mg PO Q6H PRN 02/28/19 04:45 THYROID ABS [REF] Routine 02/28/19 07:42 Blood Glucose Check, Bedside [RC] WITHMEALSANDBED 02/28/19 09:00 Lisinopril [Prinivil] 5 mg PO DAILY 02/28/19 09:20 H PYLORI STOOL ANTIGEN [MREF] Routine 02/28/19 11:30 Insulin Aspart [NovoLOG] See Protocol SUBCUT TIDAC - Plan Plan:: A: 1. Normocytic anemia, improving 2. Lower extremity edema, improving 3. Arthralgias 4. Acute kidney injury, improving 5. Proteinuria 6. Hematuria 7. UTI 8. Thrombocytopenia,improving 9. Elevated inflammatory marker 10. Hyperkalemia 11. Hypothyroidism, likely reactive P: 1. Normocytic anemia, improving. Hg 7.6 this morning. Still pending on 2 units PRBCS leukoirradiated. Will recheck Hg and transfuse as necessary. 2. Arthralgias. Suspect autoimmune disorder possibly Lupus. Still pending on final autoimmune workup results. Will continue with prednisone 40 mg PO daily for now until seen by PCP. Will need to check ESR on weekly basis to see if improving and that way make adjustments to steroid dose. 3. Lower extremity edema. 24h urine protein was 2,968 mg which is below the number needed to be considered nephrotic. I added lisinopril 5 mg PO daily to help with proteinuria for now. 4. UTI. continue ceftriaxone. Will need to switch to PO antibiotics at discharge. 5. Hypothyroidism. Likely reactive since TSH was elevated but T4 was within normal range. Will need to recheck TSH as outpatient. Dispo: plan to DC tomorrow.
[2019-02-28] MEDS: Insulin Aspart 100 Units/ML 3 ML Pen SUBCUT SCH ×2 (11:18→17:23)
[2019-03-01] MEDS: Insulin Aspart 100 Units/ML 3 ML Pen SUBCUT SCH ×2 (06:45→11:45)
[2019-03-01] MEDS: Pantoprazole 40 MG Vial IV SCH (08:42)
[2019-03-01] MEDS: cefTRIAXone 1 GM in Premix Bag 1 BAG IV SCH (08:43)
[2019-03-01] MEDS: Lisinopril 5 MG Tab PO SCH (08:52)
[2019-03-01] MEDS: predniSONE 20 MG Tab PO SCH (08:52)
--- NOTE | 2019-03-01 10:42 | PCM.DCSUM1 ---
Discharge Summary - Discharge Data Discharge Date: 03/01/19 Discharge Disposition: Home, Self-Care 01 Condition: Good - Patient Summary/Data Hospital Course: 23 yo female who presented with complaints of lower leg swelling and joint pain of the hands. Patient reports for several weeks she has had increasing lower leg edema. She also reported pain in the joints of her hand that would make it difficult to close her hands. She was noted to have mild swelling of the PIP joints as well as pedal edema. In [facility] she was prescribed lasix which did improve her leg edema. She reportedly had an echocardiogram which was normal. She had a stomach upset and felt it was due to the lasix so she stopped taking her lasix which then her leg edema returned prompting to seek medical attention in [facility] as this is were she recently moved. Her work up was significant for BUN 36, Creatinine of 1.5, Hgb 8.6, Sodium 139, ESR greater than 140, CRP less than 0.20, 24 hr urine protein 296.8, 24 hr urine creatinine 799.7 and positive for Rheumatoid factor. Patient was treated with lasix and started on prednisone due to concerns of nephrotic syndrome/nephritis from an autoimmune rheumatological disorder. Her Hgb dropped to 6.6. Her peripheral smear did not show signs of hemolysis. She had no signs of active bleeding. She was transfused 2 units of pRBC with a rise of Hgb to 11.0. She was discharged home and is to follow up with Dr. Gregory. - Discharge Plan Prescriptions/Med Rec: predniSONE [Prednisone] 40 mg PO DAILY #10 tablet Home Medications: Home Meds Lisinopril 5 mg PO DAILY 02/27/19 [History] Furosemide 40 mg PO DAILY PRN #0 03/01/19 [Rx] predniSONE [Prednisone] 40 mg PO DAILY #10 tablet 03/01/19 [Rx] Patient Handouts: Proteinuria Referrals: Tyrel Recinos MD [Resident] - 03/11/19 4:15 pm - Discharge Summary/Plan Comment DC Time >30 min.: No - Patient Data Vitals - Most Recent: Last Vital Signs Temp 36.3 C 03/01/19 07:45 Pulse 57 L 03/01/19 07:45 Resp 16 03/01/19 07:45 BP 140/86 03/01/19 08:52 Pulse Ox 98 03/01/19 07:45 Weight - Most Recent: 51.301 kg I&O - Last 24 hours: Intake & Output 02/28/19 03/01/19 03/01/19 22:59 06:59 14:59 Intake Total 1849 1040 Output Total 220 800 Balance 1629 240 Lab Results - Last 24 hrs: Laboratory Results - last 24 hr 02/27/19 02/28/19 02/28/19 Range/Units 08:00 11:14 17:16 WBC (4.0-11.0) K/uL RBC (4.30-5.90) M/uL Hgb (12.0-16.0) g/dL Hct (36.0-46.0) % MCV (80.0-98.0) fL MCH (27.0-32.0) pg MCHC (31.0-37.0) g/dL RDW Std Deviation (28.0-62.0) fl RDW Coeff of Analisa (11.0-15.0) % Plt Count (150-400) K/uL MPV (7.40-12.00) fL Neut % (Auto) (48.0-80.0) % Lymph % (Auto) (16.0-40.0) % Kimble % (Auto) (0.0-15.0) % Eos % (Auto) (0.0-7.0) % Baso % (Auto) (0.0-1.5) % Neut # (Auto) (1.4-5.7) K/uL Lymph # (Auto) (0.6-2.4) K/uL Kimble # (Auto) (0.0-0.8) K/uL Eos # (Auto) (0.0-0.7) K/uL Baso # (Auto) (0.0-0.1) K/uL Nucleated RBC % /100WBC Nucleated RBCs # K/uL ESR (0-19) mm/hr Sodium (136-145) mmol/L Potassium (3.5-5.1) mmol/L Chloride (98-107) mmol/L Carbon Dioxide (21.0-32.0) mmol/L BUN (7.0-18.0) mg/dL Creatinine (0.6-1.0) mg/dL Est Cr Clr Drug Dosing mL/min Estimated GFR (MDRD) ml/min Glucose (74-106) mg/dL POC Glucose 120 H 131 H (60-110) mg/dL Calcium (8.5-10.1) mg/dL Total Bilirubin (0.2-1.0) mg/dL AST (15-37) IU/L ALT (14-63) IU/L Alkaline Phosphatase (46-116) U/L Total Protein (6.4-8.2) g/dL Albumin (3.4-5.0) g/dL Globulin (2.6-4.0) g/dL Albumin/Globulin Ratio (0.9-1.6) Blood Type O POSITIVE Antibody Screen POSITIVE Prewarmed Antibody Srcn NEGATIVE Antibody Identification Cancelled Cold Antibody Screen POSITIVE ROGER, IgG Interpret POSITIVE (NEGATIVE) ROGER, Poly Interpret POSITIVE (NEGATIVE) Crossmatch Prewarmed See Detail 02/28/19 03/01/19 03/01/19 Range/Units 20:43 05:57 05:57 WBC 11.08 H (4.0-11.0) K/uL RBC 3.83 L (4.30-5.90) M/uL Hgb 11.0 L (12.0-16.0) g/dL Hct 31.8 L (36.0-46.0) % MCV 83.0 (80.0-98.0) fL MCH 28.7 (27.0-32.0) pg MCHC 34.6 (31.0-37.0) g/dL RDW Std Deviation 46.8 (28.0-62.0) fl RDW Coeff of Analisa 15 (11.0-15.0) % Plt Count 113 L (150-400) K/uL MPV 11.70 (7.40-12.00) fL Neut % (Auto) 74.8 (48.0-80.0) % Lymph % (Auto) 18.4 (16.0-40.0) % Kimble % (Auto) 6.7 (0.0-15.0) % Eos % (Auto) 0.0 (0.0-7.0) % Baso % (Auto) 0.1 (0.0-1.5) % Neut # (Auto) 8.3 H (1.4-5.7) K/uL Lymph # (Auto) 2.0 (0.6-2.4) K/uL Kimble # (Auto) 0.7 (0.0-0.8) K/uL Eos # (Auto) 0.0 (0.0-0.7) K/uL Baso # (Auto) 0.0 (0.0-0.1) K/uL Nucleated RBC % 0.0 /100WBC Nucleated RBCs # 0 K/uL ESR 88 H (0-19) mm/hr Sodium 139 (136-145) mmol/L Potassium 4.9 (3.5-5.1) mmol/L Chloride 111 H (98-107) mmol/L Carbon Dioxide 21.4 (21.0-32.0) mmol/L BUN 52 H (7.0-18.0) mg/dL Creatinine 1.2 H (0.6-1.0) mg/dL Est Cr Clr Drug Dosing 51.92 mL/min Estimated GFR (MDRD) 55.2 ml/min Glucose 122 H (74-106) mg/dL POC Glucose 132 H (60-110) mg/dL Calcium 8.0 L (8.5-10.1) mg/dL Total Bilirubin 0.4 (0.2-1.0) mg/dL AST 16 (15-37) IU/L ALT 12 L (14-63) IU/L Alkaline Phosphatase 38 L (46-116) U/L Total Protein 5.6 L (6.4-8.2) g/dL Albumin 1.9 L (3.4-5.0) g/dL Globulin 3.7 (2.6-4.0) g/dL Albumin/Globulin Ratio 0.5 L (0.9-1.6) Blood Type Antibody Screen Prewarmed Antibody Srcn Antibody Identification Cold Antibody Screen ROGER, IgG Interpret (NEGATIVE) ROGER, Poly Interpret (NEGATIVE) Crossmatch Prewarmed 03/01/19 Range/Units 06:35 WBC (4.0-11.0) K/uL RBC (4.30-5.90) M/uL Hgb (12.0-16.0) g/dL Hct (36.0-46.0) % MCV (80.0-98.0) fL MCH (27.0-32.0) pg MCHC (31.0-37.0) g/dL RDW Std Deviation (28.0-62.0) fl RDW Coeff of Analisa (11.0-15.0) % Plt Count (150-400) K/uL MPV (7.40-12.00) fL Neut % (Auto) (48.0-80.0) % Lymph % (Auto) (16.0-40.0) % Kimble % (Auto) (0.0-15.0) % Eos % (Auto) (0.0-7.0) % Baso % (Auto) (0.0-1.5) % Neut # (Auto) (1.4-5.7) K/uL Lymph # (Auto) (0.6-2.4) K/uL Kimble # (Auto) (0.0-0.8) K/uL Eos # (Auto) (0.0-0.7) K/uL Baso # (Auto) (0.0-0.1) K/uL Nucleated RBC % /100WBC Nucleated RBCs # K/uL ESR (0-19) mm/hr Sodium (136-145) mmol/L Potassium (3.5-5.1) mmol/L Chloride (98-107) mmol/L Carbon Dioxide (21.0-32.0) mmol/L BUN (7.0-18.0) mg/dL Creatinine (0.6-1.0) mg/dL Est Cr Clr Drug Dosing mL/min Estimated GFR (MDRD) ml/min Glucose (74-106) mg/dL POC Glucose 100 (60-110) mg/dL Calcium (8.5-10.1) mg/dL Total Bilirubin (0.2-1.0) mg/dL AST (15-37) IU/L ALT (14-63) IU/L Alkaline Phosphatase (46-116) U/L Total Protein (6.4-8.2) g/dL Albumin (3.4-5.0) g/dL Globulin (2.6-4.0) g/dL Albumin/Globulin Ratio (0.9-1.6) Blood Type Antibody Screen Prewarmed Antibody Srcn Antibody Identification Cold Antibody Screen ROGER, IgG Interpret (NEGATIVE) ROGER, Poly Interpret (NEGATIVE) Crossmatch Prewarmed VENKAT Results - Last 24 hrs: Microbiology 02/26/19 19:45 Urine Culture - Final Urine, Clean Catch MIXED DEQUAN 1,000-10,000 CFU/ML Med Orders - Current: Current Medications Ceftriaxone Sodium/Dextrose 1 (gm/ Premix) 50 mls @ 100 mls/hr IV Q24H [facility] Last Admin: 03/01/19 08:43 Dose: 100 mls/hr Insulin Aspart (Novolog) 0 unit SUBCUT TIDAC [facility]; Protocol Last Admin: 03/01/19 06:45 Dose: Not Given Lisinopril (Prinivil) 5 mg PO DAILY [facility] Last Admin: 03/01/19 08:52 Dose: 5 mg Pantoprazole Sodium (Protonix Iv) 40 mg IV Q24H [facility] Last Admin: 03/01/19 08:42 Dose: 40 mg Prednisone (Prednisone) 40 mg PO WITHBREAKFAST [facility] Last Admin: 03/01/19 08:52 Dose: 40 mg Sodium Chloride (Saline Flush) 10 ml FLUSH ASDIRECTED PRN PRN Reason: Keep Vein Open Sodium Chloride (Saline Flush) 2.5 ml FLUSH ASDIRECTED PRN PRN Reason: Keep Vein Open Tramadol HCl (Ultram) 50 mg PO Q6H PRN PRN Reason: Pain Discontinued Medications Furosemide (Lasix) 20 mg IVPUSH NOW ONE Stop: 02/26/19 21:05 Last Admin: 02/26/19 21:14 Dose: 20 mg Sodium Chloride (Normal Saline) 1,000 mls @ 999 mls/hr IV STAT ONE Stop: 02/26/19 21:51 Last Admin: 02/26/19 21:14 Dose: 999 mls/hr
== END 2019-03-01 12:30 | disposition home or self-care (01) ==
LOC: MW.ED 19:20 → MW.MS 21:11
PROVIDERS: ADMIT Internal Medicine; ATTEND Internal Medicine
DX: D64.9 Anemia, unspecified (principal); D69.6 Thrombocytopenia, unspecified; R60.0 Localized edema; M25.549 Pain in joints of unspecified hand; R80.9 Proteinuria, unspecified; R31.9 Hematuria, unspecified; N17.9 Acute kidney failure, unspecified; N39.0 Urinary tract infection, site not specified; E87.5 Hyperkalemia; E03.9 Hypothyroidism, unspecified; Z82.61 Family history of arthritis; Z79.52 Long term (current) use of systemic steroids; Z79.899 Other long term (current) drug therapy
CPT/HCPCS: 36415; 36430; 71045; 71045-26; 80053; 81001; 81025; 82272; 82550; 82570; 82728; 82962; 83550; 83615; 84156; 84439; 84443; 84481; 85025; 85027; 85613; 85652; 85730; 86038; 86140; 86156; 86162; 86200; 86225; 86376; 86430; 86431; 86800; 86850; 86870; 86880; 86900; 86901; 86922; 87086; 87338; 88104; 96361; 96365; 96366; 96374; 96375; 96376; 99284-25; A4217; A9270-GY; C9113; G0378; J0696; J1940; J7040; P9016

== ENCOUNTER 2019-03-02 22:31 | Emergency (ER) | payer OTHER ==
--- NOTE | 2019-03-02 22:50 | EDM.PDOC ---
ED HPI GENERAL MEDICAL PROBLEM - General Chief Complaint: Genitourinary Problem Stated Complaint: SWELLING Time Seen by Provider: 03/02/19 22:44 - History of Present Illness INITIAL COMMENTS - FREE TEXT/NARRATIVE: HISTORY AND PHYSICAL: History of present illness: Patient is a 23-year-old white female who presents with a concern of edema was recently hospitalized for the same and discharged with a presumptive diagnosis of nephrotic syndrome/nephritis and possible autoimmune rheumatologic disease. She returns today anxious with slightly increased edema. No shortness of breath nausea vomiting fever chills or other complaints during her last hospitalization she did develop anemia and was transfused. Review of systems: As per history of present illness and below otherwise all systems reviewed and negative. Past medical history: As per history of present illness and as reviewed below otherwise noncontributory. Surgical history: As per history of present illness and as reviewed below otherwise noncontributory. Social history: No reported history of drug or alcohol abuse. Family history: As per history of present illness and as reviewed below otherwise noncontributory. Physical exam: HEENT: Atraumatic, normocephalic, pupils reactive, negative for conjunctival pallor or scleral icterus, mucous membranes moist, throat clear, neck supple, nontender, trachea midline. Lungs: Clear to auscultation, breath sounds equal bilaterally, chest nontender. Heart: S1S2, regular, negative for clicks, rubs, or JVD. Abdomen: Soft, nondistended, nontender. Negative for masses or hepatosplenomegaly. Negative for costovertebral tenderness. Pelvis: Stable nontender. Genitourinary: Deferred. Rectal: Deferred. Extremities: 1+ peripheral edema noted. Neuro: Awake, alert, oriented. Cranial nerves II through XII unremarkable. Cerebellum unremarkable. Motor and sensory unremarkable throughout. Exam nonfocal. Diagnostics: CBC CMP UA Therapeutics: None Impression: #1 peripheral edema secondary to nephrotic syndrome #2 rule out autoimmune disease Definitive disposition and diagnosis as appropriate pending reevaluation and review of above. - Related Data Allergies Allergy/AdvReac Type Severity Reaction Status Date / Time No Known Allergies Allergy Verified 03/02/19 22:43 Home Meds: Home Meds Lisinopril 5 mg PO DAILY 02/27/19 [History] Furosemide 40 mg PO DAILY PRN #0 03/01/19 [Rx] predniSONE [Prednisone] 40 mg PO DAILY #10 tablet 03/01/19 [Rx] Past Medical History - Past Health History Medical/Surgical History: Denies Medical/Surgical History HEENT History: Reports: None Cardiovascular History: Reports: Hypertension Genitourinary History: Reports: Renal Disease Musculoskeletal History: Reports: Other (See Below) Other Musculoskeletal History: joint pain in her hands Psychiatric History: Reports: Depression - Infectious Disease History Infectious Disease History: Reports: None - Past Surgical History HEENT Surgical History: Reports: Other (See Below) Other HEENT Surgeries/Procedures: nose reconstruction Cardiovascular Surgical History: Reports: None Female Surgical History: Reports: None Social & Family History - Family History Family Medical History: Noncontributory - Tobacco Use Smoking Status *Q: Never Smoker Second Hand Smoke Exposure: No - Caffeine Use Caffeine Use: Reports: None - Recreational Drug Use Recreational Drug Use: No ED ROS GENERAL - Review of Systems Review Of Systems: ROS reveals no pertinent complaints other than HPI. ED EXAM, GENERAL - Physical Exam Exam: See Below (See dictation) Course - Vital Signs Last Recorded V/S: Last Vital Signs Temp 36.1 C 03/02/19 22:33 Pulse 57 L 03/02/19 22:33 Resp 17 03/02/19 22:33 BP 174/113 H 03/02/19 22:33 Pulse Ox 100 03/02/19 22:33 - Orders/Labs/Meds Orders: Active Orders 24 hr Category Date Time Status CMP [COMPREHENSIVE METABOLIC PN,CMP] [CHEM] Stat Lab 03/02/19 22:55 Results Labs: Laboratory Tests 03/02/19 03/02/19 03/02/19 Range/Units 22:55 22:55 22:55 WBC 9.87 (4.0-11.0) K/uL RBC 3.98 L (4.30-5.90) M/uL Hgb 11.5 L (12.0-16.0) g/dL Hct 33.9 L (36.0-46.0) % MCV 85.2 (80.0-98.0) fL MCH 28.9 (27.0-32.0) pg MCHC 33.9 (31.0-37.0) g/dL RDW Std Deviation 48.4 (28.0-62.0) fl RDW Coeff of Analisa 16 H (11.0-15.0) % Plt Count 123 L (150-400) K/uL MPV 11.60 (7.40-12.00) fL Neut % (Auto) 64.4 (48.0-80.0) % Lymph % (Auto) 28.7 (16.0-40.0) % [place] % (Auto) 6.2 (0.0-15.0) % Eos % (Auto) 0.5 (0.0-7.0) % Baso % (Auto) 0.2 (0.0-1.5) % Neut # (Auto) 6.4 H (1.4-5.7) K/uL Lymph # (Auto) 2.8 H (0.6-2.4) K/uL [place] # (Auto) 0.6 (0.0-0.8) K/uL Eos # (Auto) 0.1 (0.0-0.7) K/uL Baso # (Auto) 0.0 (0.0-0.1) K/uL Nucleated RBC % 0.0 /100WBC Nucleated RBCs # 0 K/uL Sodium 137 (136-145) mmol/L Potassium 4.6 (3.5-5.1) mmol/L Chloride 108 H (98-107) mmol/L Carbon Dioxide 22.7 (21.0-32.0) mmol/L BUN 62 H (7.0-18.0) mg/dL Creatinine 1.4 H (0.6-1.0) mg/dL Est Cr Clr Drug Dosing 44.51 mL/min Estimated GFR (MDRD) 46.2 ml/min Glucose 92 (74-106) mg/dL Calcium 7.9 L (8.5-10.1) mg/dL Total Bilirubin 0.4 (0.2-1.0) mg/dL ALT 24 (14-63) IU/L Alkaline Phosphatase 57 (46-116) U/L Total Protein 6.3 L (6.4-8.2) g/dL Albumin 2.4 L (3.4-5.0) g/dL Globulin 3.9 (2.6-4.0) g/dL Albumin/Globulin Ratio 0.6 L (0.9-1.6) Urine Color YELLOW Urine Appearance CLEAR Urine pH 5.5 (5.0-8.0) Ur Specific [place] <= 1.005 (1.001-1.035) Urine Protein 100 H (NEGATIVE) mg/dL Urine Glucose (UA) NEGATIVE (NEGATIVE) mg/dL Urine Ketones NEGATIVE (NEGATIVE) mg/dL Urine Occult Blood LARGE H (NEGATIVE) Urine Nitrite NEGATIVE (NEGATIVE) Urine Bilirubin NEGATIVE (NEGATIVE) Urine Urobilinogen 0.2 (<2.0) EU/dL Ur Leukocyte Esterase TRACE H (NEGATIVE) Urine RBC 20-25 (0-2/HPF) Urine WBC 0-4 (0-5/HPF) Ur Epithelial Cells FEW (NONE-FEW) Ur Renal Epithelial Cell MODERATE Urine Bacteria FEW (NEGATIVE) Departure - Departure Time of Disposition: 23:37 Disposition: Home, Self-Care 01 Condition: Good Clinical Impression: Nephrotic syndrome, Encounter for medical screening examination - Discharge Information Referrals: PCP,None [Primary Care Provider] - Forms: ED Department Discharge Additional Instructions: The following information is given to patients seen in the emergency department who are being discharged to home. This information is to outline your options for follow-up care. We provide all patients seen in our emergency department with a follow-up referral. The need for follow-up, as well as the timing and circumstances, are variable depending upon the specifics of your emergency department visit. If you don't have a primary care physician on staff, we will provide you with a referral. We always advise you to contact your personal physician following an emergency department visit to inform them of the circumstance of the visit and for follow-up with them and/or the need for any referrals to a consulting specialist. The emergency department will also refer you to a specialist when appropriate. This referral assures that you have the opportunity for followup care with a specialist. All of these measure are taken in an effort to provide you with optimal care, which includes your followup. Under all circumstances we always encourage you to contact your private physician who remains a resource for coordinating your care. When calling for followup care, please make the office aware that this follow-up is from your recent emergency room visit. If for any reason you are refused follow-up, please contact the [facility] emergency department at and asked to speak to the emergency department charge nurse. Continue current medications follow-up private medical doctor call in a.m. to schedule expedited appointment keep referrals as scheduled and return as needed as discussed - My Orders Last 24 Hours: My Active Orders 03/02/19 22:55 CMP [COMPREHENSIVE METABOLIC PN,CMP] [CHEM] Stat - Assessment/Plan Last 24 Hours: My Active Orders 03/02/19 22:55 CMP [COMPREHENSIVE METABOLIC PN,CMP] [CHEM] Stat
== END 2019-03-02 23:54 | disposition home or self-care (01) ==
LOC: MW.ED 22:31
DX: N04.9 Nephrotic syndrome with unspecified morphologic changes (principal); I10 Essential (primary) hypertension; Z79.899 Other long term (current) drug therapy
CPT/HCPCS: 36415; 80053; 81001; 85025; 99283

== ENCOUNTER 2019-03-05 19:18 | Observation (INO) | payer SELFPAY ==
--- NOTE | 2019-03-05 19:30 | EDM.PDOC ---
ED HPI GENERAL MEDICAL PROBLEM - General Chief Complaint: Cardiovascular Problem Stated Complaint: BLOOD PRESSURE Time Seen by Provider: 03/05/19 19:29 Source of Information: Reports: Patient - History of Present Illness INITIAL COMMENTS - FREE TEXT/NARRATIVE: HISTORY AND PHYSICAL: History of present illness: [Patient presents with lightheaded and dizziness off and on for 24 hours, she notes her heart rate has been in the low 40s, are on arrival his ranged between 52 and 65 initially Fever nausea vomiting chills sweats no chest pain shortness breath headache palpitation no bowel or urine symptoms ] Review of systems: As per history of present illness and below otherwise all systems reviewed and negative. Past medical history: As per history of present illness and as reviewed below otherwise noncontributory. Surgical history: As per history of present illness and as reviewed below otherwise noncontributory. Social history: No reported history of drug or alcohol abuse. Family history: As per history of present illness and as reviewed below otherwise noncontributory. Physical exam: HEENT: Atraumatic, normocephalic, pupils reactive, negative for conjunctival pallor or scleral icterus, mucous membranes moist, throat clear, neck supple, nontender, trachea midline. Lungs: Clear to auscultation, breath sounds equal bilaterally, chest nontender. Heart: S1S2, regular, negative for clicks, rubs, or JVD. Abdomen: Soft, nondistended, nontender. Negative for masses or hepatosplenomegaly. Negative for costovertebral tenderness. Pelvis: Stable nontender. Genitourinary: Deferred. Rectal: Deferred. Extremities: Atraumatic, negative for cords or calf pain. Neurovascular unremarkable. Neuro: Awake, alert, oriented. Cranial nerves II through XII unremarkable. Cerebellum unremarkable. Motor and sensory unremarkable throughout. Exam nonfocal. Diagnostics: [CBC CMP UA hCG EKG Chest [address] no contrast ] Therapeutics: [ normal saline ]Lasix 10 mg IV Calcium gluconate Half amp D50 Regular insulin 5 units subcutaneous Impression: Symptomatic hyponatremia Hyperkalemia [ dizzy Sinus bradycardia ] Definitive disposition and diagnosis as appropriate pending reevaluation and review of above. - Related Data Allergies Allergy/AdvReac Type Severity Reaction Status Date / Time No Known Allergies Allergy Verified 03/05/19 19:23 Home Meds: Home Meds Lisinopril 5 mg PO DAILY 02/27/19 [History] Furosemide 40 mg PO DAILY PRN #0 03/01/19 [Rx] predniSONE [Prednisone] 40 mg PO DAILY #10 tablet 03/01/19 [Rx] Past Medical History - Past Health History Medical/Surgical History: Denies Medical/Surgical History HEENT History: Reports: None Cardiovascular History: Reports: Hypertension Genitourinary History: Reports: Renal Disease Musculoskeletal History: Reports: Other (See Below) Other Musculoskeletal History: joint pain in her hands Psychiatric History: Reports: Depression - Infectious Disease History Infectious Disease History: Reports: None - Past Surgical History HEENT Surgical History: Reports: Other (See Below) Other HEENT Surgeries/Procedures: nose reconstruction Cardiovascular Surgical History: Reports: None Female Surgical History: Reports: None Social & Family History - Family History Family Medical History: Noncontributory - Tobacco Use Smoking Status *Q: Never Smoker Second Hand Smoke Exposure: No - Caffeine Use Caffeine Use: Reports: None - Recreational Drug Use Recreational Drug Use: No ED ROS GENERAL - Review of Systems Review Of Systems: See Below ED EXAM, GENERAL - Physical Exam Exam: See Below Course - Vital Signs Last Recorded V/S: Last Vital Signs Temp 97.5 F 03/05/19 19:23 Pulse 51 L 03/05/19 20:35 Resp 18 03/05/19 20:35 BP 149/99 H 03/05/19 20:35 Pulse Ox 97 03/05/19 20:35 - Orders/Labs/Meds Orders: Active Orders 24 hr Category Date Time Status EKG Documentation Completion [RC] STAT Care 03/05/19 19:30 Active COMPREHENSIVE METABOLIC PN,CMP [CHEM] Stat Lab 03/05/19 19:44 Results CULTURE URINE [RM] Stat Lab 03/05/19 19:47 Received TROPONIN I [CHEM] Stat Lab 03/05/19 19:44 Results Dextrose 50% in Water Med 03/05/19 20:47 Once 50 ml IVPUSH ONETIME ONE Insulin Regular, Human [NovoLIN R] Med 03/05/19 20:46 Stat 5 unit SUBCUT NOW STA Sodium Chloride 0.9% [Normal Saline] 1,000 ml Med 03/05/19 19:45 Active IV STAT Medication Orders Sodium Chloride (Normal Saline) 1,000 mls @ 125 mls/hr IV STAT YIN Last Admin: 03/05/19 19:54 Dose: 125 mls/hr Insulin Human Regular (Novolin R) 5 unit SUBCUT NOW STA; Protocol Stop: 03/05/19 20:47 Labs: Laboratory Tests 03/05/19 03/05/19 03/05/19 Range/Units 19:44 19:44 19:47 WBC 11.71 H (4.0-11.0) K/uL RBC 4.12 L (4.30-5.90) M/uL Hgb 12.1 (12.0-16.0) g/dL Hct 34.9 L (36.0-46.0) % MCV 84.7 (80.0-98.0) fL MCH 29.4 (27.0-32.0) pg MCHC 34.7 (31.0-37.0) g/dL RDW Std Deviation 44.8 (28.0-62.0) fl RDW Coeff of Analisa 15 (11.0-15.0) % Plt Count 121 L (150-400) K/uL MPV 12.20 H (7.40-12.00) fL Neut % (Auto) 88.2 H (48.0-80.0) % Lymph % (Auto) 9.6 L (16.0-40.0) % [place] % (Auto) 2.2 (0.0-15.0) % Eos % (Auto) 0.0 (0.0-7.0) % Baso % (Auto) 0.0 (0.0-1.5) % Neut # (Auto) 10.3 H (1.4-5.7) K/uL Lymph # (Auto) 1.1 (0.6-2.4) K/uL [place] # (Auto) 0.3 (0.0-0.8) K/uL Eos # (Auto) 0.0 (0.0-0.7) K/uL Baso # (Auto) 0.0 (0.0-0.1) K/uL Nucleated RBC % 0.0 /100WBC Nucleated RBCs # 0 K/uL Sodium 125 L (136-145) mmol/L Potassium 6.6 H (3.5-5.1) mmol/L Chloride 98 (98-107) mmol/L Carbon Dioxide 20.2 L (21.0-32.0) mmol/L BUN 71 H (7.0-18.0) mg/dL Creatinine 1.4 H (0.6-1.0) mg/dL Est Cr Clr Drug Dosing 44.51 mL/min Estimated GFR (MDRD) 46.2 ml/min Glucose 113 H (74-106) mg/dL Calcium 8.3 L (8.5-10.1) mg/dL Total Bilirubin 0.6 (0.2-1.0) mg/dL AST 22 (15-37) IU/L ALT 19 (14-63) IU/L Alkaline Phosphatase 47 (46-116) U/L Total Protein 6.8 (6.4-8.2) g/dL Albumin 2.6 L (3.4-5.0) g/dL Globulin 4.2 H (2.6-4.0) g/dL Albumin/Globulin Ratio 0.6 L (0.9-1.6) Urine Color YELLOW Urine Appearance SLT CLOUDY Urine pH 5.5 (5.0-8.0) Ur Specific [place] 1.015 (1.001-1.035) Urine Protein 100 H (NEGATIVE) mg/dL Urine Glucose (UA) NEGATIVE (NEGATIVE) mg/dL Urine Ketones NEGATIVE (NEGATIVE) mg/dL Urine Occult Blood LARGE H (NEGATIVE) Urine Nitrite NEGATIVE (NEGATIVE) Urine Bilirubin NEGATIVE (NEGATIVE) Urine Urobilinogen 0.2 (<2.0) EU/dL Ur Leukocyte Esterase TRACE H (NEGATIVE) Urine RBC 10-14 (0-2/HPF) Urine WBC 0-1 (0-5/HPF) Ur Epithelial Cells FEW (NONE-FEW) Urine Bacteria FEW (NEGATIVE) Urine Mucus LIGHT (NONE-MOD) Meds: Medications Generic Name Dose Route Start Last Admin Trade Name Frearamis PRN Reason Stop Dose Admin Sodium Chloride 1,000 mls @ 125 mls/hr 03/05/19 19:45 03/05/19 19:54 Normal Saline IV 125 mls/hr STAT YIN Administration Insulin Human Regular 5 unit 03/05/19 20:46 Novolin R SUBCUT 03/05/19 20:47 NOW STA Protocol Discontinued Medications Generic Name Dose Route Start Last Admin Trade Name Freq PRN Reason Stop Dose Admin Calcium Gluconate 1 gm 03/05/19 20:37 Calcium Gluconate IVPUSH 03/05/19 20:38 ONETIME ONE Furosemide 10 mg 03/05/19 20:37 Lasix IVPUSH 03/05/19 20:38 NOW ONE Departure - Departure Time of Disposition: 20:48 Disposition: Refer to Observation Condition: Fair Clinical Impression: Hyponatremia Referrals: PCP,None [Primary Care Provider] - Forms: ED Department Discharge - My Orders Last 24 Hours: My Active Orders 03/05/19 19:30 EKG Documentation Completion [RC] STAT 03/05/19 19:44 COMPREHENSIVE METABOLIC PN,CMP [CHEM] Stat TROPONIN I [CHEM] Stat 03/05/19 19:45 Sodium Chloride 0.9% [Normal Saline] 1,000 ml IV STAT 03/05/19 19:47 CULTURE URINE [RM] Stat 03/05/19 20:46 Insulin Regular, Human [NovoLIN R] 5 unit SUBCUT NOW STA 03/05/19 20:47 Dextrose 50% in Water 50 ml IVPUSH ONETIME ONE - Assessment/Plan Last 24 Hours: My Active Orders 03/05/19 19:30 EKG Documentation Completion [RC] STAT 03/05/19 19:44 COMPREHENSIVE METABOLIC PN,CMP [CHEM] Stat TROPONIN I [CHEM] Stat 03/05/19 19:45 Sodium Chloride 0.9% [Normal Saline] 1,000 ml IV STAT 03/05/19 19:47 CULTURE URINE [RM] Stat 03/05/19 20:46 Insulin Regular, Human [NovoLIN R] 5 unit SUBCUT NOW STA 03/05/19 20:47 Dextrose 50% in Water 50 ml IVPUSH ONETIME ONE
--- NOTE | 2019-03-05 19:48 | CR ---
INDICATION: dizziness, swelling of extremities TECHNIQUE: Chest 1 view. COMPARISON: 02/26/19 FINDINGS: Cardiovascular and mediastinum: Heart size and vasculature are normal in caliber and appearance. Mediastinum is within normal limits. Lungs and pleural space: Lungs are clear. No sign of infiltrate or mass. No sign of pleural effusion. No pneumothorax. Bones and soft tissues: No significant findings. IMPRESSION: Unremarkable chest. Dictated by: Fabricio Stubbs MD @ 03/05/2019 19:47:37 (Electronically Signed)
[2019-03-05] MEDS: Sodium Chloride 0.9% 1,000 ML IV SCH (19:54)
--- NOTE | 2019-03-05 20:26 | CT ---
INDICATION: Dizzy and lightheaded TECHNIQUE: CT head without contrast. COMPARISON: None. FINDINGS: CSF spaces: Within normal limits for age. Brain parenchyma and extra-axial spaces: The rosa-white differentiation is normal. No sign of mass, hemorrhage, or midline shift. No extra-axial fluid collection. Skull base and calvarium: The visualized paranasal sinuses and mastoid air cells demonstrate no acute or significant findings. The visualized orbits are grossly unremarkable. No skull fractures. IMPRESSION: Unremarkable noncontrast head CT. Please note that all CT scans at this facility use dose modulation, iterative reconstruction, and/or weight-based dosing when appropriate to reduce radiation dose to as low as reasonably achievable. Dictated by Zhen Childs MD @ Mar 05 2019 8:21PM Signed by Dr. Zhen Childs @ Mar 05 2019 8:25PM
[2019-03-05] MEDS ORDERED: Furosemide 40 MG/4 ML VIAL IVPUSH ONE (20:37)
[2019-03-05] MEDS ORDERED: Calcium Gluconate 10% 1 GM/10 ML SDV IVPUSH ONE (20:37)
[2019-03-05] MEDS ORDERED: Insulin Regular, Human 100 Units/ML 10 ML Vial SUBCUT STA (20:46)
[2019-03-05] MEDS ORDERED: 50% Dextrose in Water 50 ML Syringe IVPUSH ONE (20:47)
[2019-03-05] MEDS ORDERED: methylPREDNISolone Sodium Succinate 125 MG/2 ML SDV IVPUSH ONE (23:06)
--- NOTE | 2019-03-05 23:06 | PCM.HP ---
H&P History of Present Illness - General Date of Service: 03/05/19 Admit Problem/Dx: Admission Diagnosis/Problem Admission Diagnosis/Problem Hyponatremia - History of Present Illness Initial Comments - Free Text/Narative: 23 yo female who has a has several month history of generalized arthralgias, swelling of PIP joints, and lower leg edema. Her work up has consisted of positive MONICA, dsDNA antibody, SM antibody, HEAD ANIMAL TRAINER antibody, scl-70 antibody, ribosomal P prot ab, chromatin ab, RF factor, and antiCCP. Her ESR was greater than 140, creatinine of 1.5, and 24 hr urine protein of 2968mg. She was hospitalized last week and transfused two units of blood for a Hgb of 6.6. She has been taking lisinopril, lasix, and prednisone. She reports her arthralgias have improved since taking steroids. Foreign reports her leg edema comes and goes. She used to use alot of salt but stopped taking it when instructed to during her last hospitalization. She reports one day history of dizziness and confusion. Patient was evaluated in the ED and noted to have a sodium of 125, potassium of 6.6 and creatinine of 1.4. In the ED she was given lasix, glucose , insulin and IV NS bolus. - Related Data Allergies/Adverse Reactions: Allergies Allergy/AdvReac Type Severity Reaction Status Date / Time No Known Allergies Allergy Verified 03/05/19 19:23 Home Medications: Home Meds Lisinopril 5 mg PO DAILY 02/27/19 [History] predniSONE [Prednisone] 40 mg PO DAILY #10 tablet 03/01/19 [Rx] Furosemide 40 mg PO DAILY PRN 03/05/19 [History] Past Medical History - Past Health History Medical/Surgical History: Denies Medical/Surgical History HEENT History: Reports: None Cardiovascular History: Reports: Hypertension Genitourinary History: Reports: Renal Disease Musculoskeletal History: Reports: Other (See Below) Other Musculoskeletal History: joint pain in her hands Psychiatric History: Reports: Depression - Infectious Disease History Infectious Disease History: Reports: None - Past Surgical History HEENT Surgical History: Reports: Other (See Below) Other HEENT Surgeries/Procedures: nose reconstruction Cardiovascular Surgical History: Reports: None Female Surgical History: Reports: None Social & Family History - Family History Family Medical History: Noncontributory - Tobacco Use Smoking Status *Q: Never Smoker Second Hand Smoke Exposure: No - Caffeine Use Caffeine Use: Reports: None - Recreational Drug Use Recreational Drug Use: No H&P Review of Systems - Review of Systems: Review Of Systems: ROS reveals no pertinent complaints other than HPI. Exam - Exam Exam: See Below - Vital Signs Vital Signs: Last Vital Signs Temp 36.3 C 03/05/19 21:36 Pulse 49 L 03/05/19 21:36 Resp 16 03/05/19 21:36 BP 148/86 H 03/05/19 21:36 Pulse Ox 100 03/05/19 21:36 Weight: 53.479 kg - Exam General: Alert, Oriented HEENT: Mucosa Moist & [place] Lungs: Clear to Auscultation, Normal Respiratory Effort Cardiovascular: Regular Rate, Regular Rhythm GI/Abdominal Exam: Normal Bowel Sounds, Soft, Non-Tender Extremities: Other (+1 pedal edema) Skin: Warm, Dry, Intact. No: Rash - Patient Data Lab Results Last 24 hrs: Laboratory Results - last 24 hr 03/05/19 03/05/19 03/05/19 Range/Units 19:44 19:44 19:47 WBC 11.71 H (4.0-11.0) K/uL RBC 4.12 L (4.30-5.90) M/uL Hgb 12.1 (12.0-16.0) g/dL Hct 34.9 L (36.0-46.0) % MCV 84.7 (80.0-98.0) fL MCH 29.4 (27.0-32.0) pg MCHC 34.7 (31.0-37.0) g/dL RDW Std Deviation 44.8 (28.0-62.0) fl RDW Coeff of Analisa 15 (11.0-15.0) % Plt Count 121 L (150-400) K/uL MPV 12.20 H (7.40-12.00) fL Neut % (Auto) 88.2 H (48.0-80.0) % Lymph % (Auto) 9.6 L (16.0-40.0) % [place] % (Auto) 2.2 (0.0-15.0) % Eos % (Auto) 0.0 (0.0-7.0) % Baso % (Auto) 0.0 (0.0-1.5) % Neut # (Auto) 10.3 H (1.4-5.7) K/uL Lymph # (Auto) 1.1 (0.6-2.4) K/uL [place] # (Auto) 0.3 (0.0-0.8) K/uL Eos # (Auto) 0.0 (0.0-0.7) K/uL Baso # (Auto) 0.0 (0.0-0.1) K/uL Nucleated RBC % 0.0 /100WBC Nucleated RBCs # 0 K/uL Sodium 125 L (136-145) mmol/L Potassium 6.6 H (3.5-5.1) mmol/L Chloride 98 (98-107) mmol/L Carbon Dioxide 20.2 L (21.0-32.0) mmol/L BUN 71 H (7.0-18.0) mg/dL Creatinine 1.4 H (0.6-1.0) mg/dL Est Cr Clr Drug Dosing 44.51 mL/min Estimated GFR (MDRD) 46.2 ml/min Glucose 113 H (74-106) mg/dL POC Glucose (60-110) mg/dL Calcium 8.3 L (8.5-10.1) mg/dL Total Bilirubin 0.6 (0.2-1.0) mg/dL AST 22 (15-37) IU/L ALT 19 (14-63) IU/L Alkaline Phosphatase 47 (46-116) U/L Troponin I 0.056 (0.000-0.056) ng/mL Total Protein 6.8 (6.4-8.2) g/dL Albumin 2.6 L (3.4-5.0) g/dL Globulin 4.2 H (2.6-4.0) g/dL Albumin/Globulin Ratio 0.6 L (0.9-1.6) Urine Color YELLOW Urine Appearance SLT CLOUDY Urine pH 5.5 (5.0-8.0) Ur Specific [place] 1.015 (1.001-1.035) Urine Protein 100 H (NEGATIVE) mg/dL Urine Glucose (UA) NEGATIVE (NEGATIVE) mg/dL Urine Ketones NEGATIVE (NEGATIVE) mg/dL Urine Occult Blood LARGE H (NEGATIVE) Urine Nitrite NEGATIVE (NEGATIVE) Urine Bilirubin NEGATIVE (NEGATIVE) Urine Urobilinogen 0.2 (<2.0) EU/dL Ur Leukocyte Esterase TRACE H (NEGATIVE) Urine RBC 10-14 (0-2/HPF) Urine WBC 0-1 (0-5/HPF) Ur Epithelial Cells FEW (NONE-FEW) Urine Bacteria FEW (NEGATIVE) Urine Mucus LIGHT (NONE-MOD) 03/05/19 Range/Units 20:56 WBC (4.0-11.0) K/uL RBC (4.30-5.90) M/uL Hgb (12.0-16.0) g/dL Hct (36.0-46.0) % MCV (80.0-98.0) fL MCH (27.0-32.0) pg MCHC (31.0-37.0) g/dL RDW Std Deviation (28.0-62.0) fl RDW Coeff of Analisa (11.0-15.0) % Plt Count (150-400) K/uL MPV (7.40-12.00) fL Neut % (Auto) (48.0-80.0) % Lymph % (Auto) (16.0-40.0) % [place] % (Auto) (0.0-15.0) % Eos % (Auto) (0.0-7.0) % Baso % (Auto) (0.0-1.5) % Neut # (Auto) (1.4-5.7) K/uL Lymph # (Auto) (0.6-2.4) K/uL [place] # (Auto) (0.0-0.8) K/uL Eos # (Auto) (0.0-0.7) K/uL Baso # (Auto) (0.0-0.1) K/uL Nucleated RBC % /100WBC Nucleated RBCs # K/uL Sodium (136-145) mmol/L Potassium (3.5-5.1) mmol/L Chloride (98-107) mmol/L Carbon Dioxide (21.0-32.0) mmol/L BUN (7.0-18.0) mg/dL Creatinine (0.6-1.0) mg/dL Est Cr Clr Drug Dosing mL/min Estimated GFR (MDRD) ml/min Glucose (74-106) mg/dL POC Glucose 109 (60-110) mg/dL Calcium (8.5-10.1) mg/dL Total Bilirubin (0.2-1.0) mg/dL AST (15-37) IU/L ALT (14-63) IU/L Alkaline Phosphatase (46-116) U/L Troponin I (0.000-0.056) ng/mL Total Protein (6.4-8.2) g/dL Albumin (3.4-5.0) g/dL Globulin (2.6-4.0) g/dL Albumin/Globulin Ratio (0.9-1.6) Urine Color Urine Appearance Urine pH (5.0-8.0) Ur Specific [place] (1.001-1.035) Urine Protein (NEGATIVE) mg/dL Urine Glucose (UA) (NEGATIVE) mg/dL Urine Ketones (NEGATIVE) mg/dL Urine Occult Blood (NEGATIVE) Urine Nitrite (NEGATIVE) Urine Bilirubin (NEGATIVE) Urine Urobilinogen (<2.0) EU/dL Ur Leukocyte Esterase (NEGATIVE) Urine RBC (0-2/HPF) Urine WBC (0-5/HPF) Ur Epithelial Cells (NONE-FEW) Urine Bacteria (NEGATIVE) Urine Mucus (NONE-MOD) Result Diagrams: 03/06/19 05:13 03/06/19 08:10 Problem List Initiated/Reviewed/Updated: Yes Orders Last 24hrs: Active Orders 24 hr Category Date Time Status Admission Status [Patient Status] [ADT] Stat ADT 03/05/19 20:48 Active Antiembolic Devices [RC] PER UNIT ROUTINE Care 03/05/19 22:47 Ordered EKG Documentation Completion [RC] STAT Care 03/05/19 19:30 Active Oxygen Therapy [RC] PRN Care 03/05/19 22:46 Ordered Up ad Rachel [RC] ASDIRECTED Care 03/05/19 22:45 Ordered VTE/DVT Education [RC] PER UNIT ROUTINE Care 03/05/19 22:46 Ordered Vital Signs [RC] Q4H Care 03/05/19 22:46 Ordered Regular Diet [DIET] Diet 03/05/19 Breakfast Ordered BASIC METABOLIC PANEL,BMP [CHEM] AM Lab 03/06/19 05:11 Ordered BASIC METABOLIC PANEL,BMP [CHEM] Routine Lab 03/05/19 23:00 Ordered C-REACTIVE PROTEIN [CHEM] Routine Lab 03/05/19 23:00 Ordered CBC WITH AUTO DIFF [HEME] AM Lab 03/06/19 05:11 Ordered CULTURE URINE [RM] Stat Lab 03/05/19 19:47 Received SEDIMENTATION RATE AUTO [HEME] Routine Lab 03/05/19 23:00 Ordered Sodium Chloride 0.9% [Normal Saline] 1,000 ml Med 03/05/19 19:45 Active IV STAT Sequential Compression Device [OM.PC] Per Unit Routine Oth 03/05/19 22:46 Ordered Resuscitation Status Routine Resus Stat 03/05/19 22:45 Ordered Medication Orders Sodium Chloride (Normal Saline) 1,000 mls @ 125 mls/hr IV STAT YIN Last Admin: 03/05/19 19:54 Dose: 125 mls/hr Assessment/Plan Comment:: 23 yo female admitted for hyponatremia with hyperkalemia in the setting of lupus Hyponatremia: patient receiving IV fluids with normal saline, will repeat BMP hyperkalemia: received lasix, glucose, and insulin, no EKG changes Lupus: patient is on prednisone at home, 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
[2019-03-05 23:10] LABS: CHLORIDE,CL 100 mmol/L (98-107); SODIUM,NA 129 mmol/L (136-145)
[2019-03-06] MEDS: Sodium Chloride 0.9% 1,000 ML IV SCH ×2 (03:35→11:26)
[2019-03-06] MEDS ORDERED: 50% Dextrose in Water 50 ML Syringe IVPUSH ONE (06:01)
[2019-03-06] MEDS ORDERED: Insulin Regular, Human 100 Units/ML 10 ML Vial IVPUSH ONE (06:02)
[2019-03-06] MEDS ORDERED: Furosemide 40 MG/4 ML VIAL IVPUSH ONE (06:26)
[2019-03-06] MEDS ORDERED: Sodium Polystyrene Sulfonate 15 GM/60 ML Susp 60 ML Bot PO ONE (06:36)
[2019-03-06] MEDS ORDERED: Calcium Gluconate 10% 1 GM/10 ML SDV IVPUSH ONE (06:38)
[2019-03-06] MEDS: Albuterol 0.083% 2.5 MG/3 ML Neb Soln ONE ×4 (07:17→07:26)
[2019-03-06] MEDS: Albuterol 0.5% 5 MG/ML Neb Soln 20 ML Bottle NEB ONE ×2 (07:18→07:23)
[2019-03-06] MEDS ORDERED: methylPREDNISolone Sodium Succinate 125 MG/2 ML SDV IVPUSH ONE (10:37)
--- NOTE | 2019-03-06 10:44 | PCM.DCSUM1 ---
Discharge Summary - Discharge Data Discharge Date: 03/06/19 Discharge Disposition: DC/Tfer to Acute Hospital 02 Condition: Good - Patient Summary/Data Hospital Course: 23 yo female who was admitted for hyponatremia, hyperkalemia with suspect lupus flare with renal involvement. She has a has several month history of generalized arthralgias, swelling of PIP joints, and lower leg edema. She has been treated with lasix for her lower leg edema and prednisone for a suspected rheumatic disorder. Her work up has consisted of positive MONICA, dsDNA antibody, SM antibody, FOREPART LASTER antibody, scl-70 antibody, ribosomal P prot ab, chromatin ab, RF factor, and antiCCP. Her ESR was greater than 140, creatinine of 1.5, and 24 hr urine protein of 2968mg. She was hospitalized last week and transfused two units of blood for a Hgb of 6.6. She has been taking lisinopril, Lasix, and prednisone. She came back to the hospital yesterday with reports of one day history of dizziness and confusion. Patient was evaluated in the ED and noted to have a sodium of 125, potassium of 6.6 and creatinine of 1.4. In the ED she was given lasix, glucose, insulin and IV NS bolus. Her potassium came down to 5.6 but on repeat it came up to 7.2. She was given glucose, insulin and lasix again along with Kayexalate and albuterol. Her potassium is now 5.0 and sodium 132. I spoke with Dr. Gonzales the [employer] Teacher in [place] who recommended transferring to [place] due to the need of more aggressive care with Nephrology and Rheumatology consultation. I spoke with Toni at [facility] in [place] who has accepted the patient. - Discharge Plan Home Medications: Home Meds Lisinopril 5 mg PO DAILY 02/27/19 [History] predniSONE [Prednisone] 40 mg PO DAILY #10 tablet 03/01/19 [Rx] Furosemide 40 mg PO DAILY PRN 03/05/19 [History] Forms: ED Department Discharge Referrals: PCP,None [Primary Care Provider] - - Discharge Summary/Plan Comment DC Time >30 min.: No - Patient Data Vitals - Most Recent: Last Vital Signs Temp 36.6 C 03/06/19 08:00 Pulse 54 L 03/06/19 08:00 Resp 16 03/06/19 08:00 BP 147/86 H 03/06/19 08:00 Pulse Ox 100 03/06/19 08:00 Weight - Most Recent: 53.479 kg I&O - Last 24 hours: Intake & Output 03/05/19 03/06/19 03/06/19 22:59 06:59 14:59 Intake Total 909 Output Total 800 Balance 109 Lab Results - Last 24 hrs: Laboratory Results - last 24 hr 03/05/19 03/05/19 03/05/19 Range/Units 19:44 19:44 19:47 WBC 11.71 H (4.0-11.0) K/uL RBC 4.12 L (4.30-5.90) M/uL Hgb 12.1 (12.0-16.0) g/dL Hct 34.9 L (36.0-46.0) % MCV 84.7 (80.0-98.0) fL MCH 29.4 (27.0-32.0) pg MCHC 34.7 (31.0-37.0) g/dL RDW Std Deviation 44.8 (28.0-62.0) fl RDW Coeff of Analisa 15 (11.0-15.0) % Plt Count 121 L (150-400) K/uL MPV 12.20 H (7.40-12.00) fL Neut % (Auto) 88.2 H (48.0-80.0) % Lymph % (Auto) 9.6 L (16.0-40.0) % [place] % (Auto) 2.2 (0.0-15.0) % Eos % (Auto) 0.0 (0.0-7.0) % Baso % (Auto) 0.0 (0.0-1.5) % Neut # (Auto) 10.3 H (1.4-5.7) K/uL Lymph # (Auto) 1.1 (0.6-2.4) K/uL [place] # (Auto) 0.3 (0.0-0.8) K/uL Eos # (Auto) 0.0 (0.0-0.7) K/uL Baso # (Auto) 0.0 (0.0-0.1) K/uL Nucleated RBC % 0.0 /100WBC Nucleated RBCs # 0 K/uL ESR (0-19) mm/hr Absolute Retic (20-80) K/uL Percent Retic (0.5-1.5) % Immature Retic Fraction % Sodium 125 L (136-145) mmol/L Potassium 6.6 H (3.5-5.1) mmol/L Chloride 98 (98-107) mmol/L Carbon Dioxide 20.2 L (21.0-32.0) mmol/L BUN 71 H (7.0-18.0) mg/dL Creatinine 1.4 H (0.6-1.0) mg/dL Est Cr Clr Drug Dosing 44.51 mL/min Estimated GFR (MDRD) 46.2 ml/min Glucose 113 H (74-106) mg/dL POC Glucose (60-110) mg/dL Calcium 8.3 L (8.5-10.1) mg/dL Total Bilirubin 0.6 (0.2-1.0) mg/dL AST 22 (15-37) IU/L ALT 19 (14-63) IU/L Alkaline Phosphatase 47 (46-116) U/L Lactate Dehydrogenase (81-234) U/L Troponin I 0.056 (0.000-0.056) ng/mL C-Reactive Protein (0.00-0.90) mg/dL Total Protein 6.8 (6.4-8.2) g/dL Albumin 2.6 L (3.4-5.0) g/dL Globulin 4.2 H (2.6-4.0) g/dL Albumin/Globulin Ratio 0.6 L (0.9-1.6) Urine Color YELLOW Urine Appearance SLT CLOUDY Urine pH 5.5 (5.0-8.0) Ur Specific [place] 1.015 (1.001-1.035) Urine Protein 100 H (NEGATIVE) mg/dL Urine Glucose (UA) NEGATIVE (NEGATIVE) mg/dL Urine Ketones NEGATIVE (NEGATIVE) mg/dL Urine Occult Blood LARGE H (NEGATIVE) Urine Nitrite NEGATIVE (NEGATIVE) Urine Bilirubin NEGATIVE (NEGATIVE) Urine Urobilinogen 0.2 (<2.0) EU/dL Ur Leukocyte Esterase TRACE H (NEGATIVE) Urine RBC 10-14 (0-2/HPF) Urine WBC 0-1 (0-5/HPF) Ur Epithelial Cells FEW (NONE-FEW) Urine Bacteria FEW (NEGATIVE) Urine Mucus LIGHT (NONE-MOD) 03/05/19 03/05/19 03/05/19 Range/Units 20:56 22:50 22:50 WBC (4.0-11.0) K/uL RBC (4.30-5.90) M/uL Hgb (12.0-16.0) g/dL Hct (36.0-46.0) % MCV (80.0-98.0) fL MCH (27.0-32.0) pg MCHC (31.0-37.0) g/dL RDW Std Deviation (28.0-62.0) fl RDW Coeff of Analisa (11.0-15.0) % Plt Count (150-400) K/uL MPV (7.40-12.00) fL Neut % (Auto) (48.0-80.0) % Lymph % (Auto) (16.0-40.0) % [place] % (Auto) (0.0-15.0) % Eos % (Auto) (0.0-7.0) % Baso % (Auto) (0.0-1.5) % Neut # (Auto) (1.4-5.7) K/uL Lymph # (Auto) (0.6-2.4) K/uL [place] # (Auto) (0.0-0.8) K/uL Eos # (Auto) (0.0-0.7) K/uL Baso # (Auto) (0.0-0.1) K/uL Nucleated RBC % /100WBC Nucleated RBCs # K/uL ESR 56 H (0-19) mm/hr Absolute Retic (20-80) K/uL Percent Retic (0.5-1.5) % Immature Retic Fraction % Sodium 129 L (136-145) mmol/L Potassium 5.6 H (3.5-5.1) mmol/L Chloride 100 (98-107) mmol/L Carbon Dioxide 19.6 L (21.0-32.0) mmol/L BUN 69 H (7.0-18.0) mg/dL Creatinine 1.3 H (0.6-1.0) mg/dL Est Cr Clr Drug Dosing 47.93 mL/min Estimated GFR (MDRD) 50.3 ml/min Glucose 129 H (74-106) mg/dL POC Glucose 109 (60-110) mg/dL Calcium 8.1 L (8.5-10.1) mg/dL Total Bilirubin (0.2-1.0) mg/dL AST (15-37) IU/L ALT (14-63) IU/L Alkaline Phosphatase (46-116) U/L Lactate Dehydrogenase (81-234) U/L Troponin I (0.000-0.056) ng/mL C-Reactive Protein <0.20 (0.00-0.90) mg/dL Total Protein (6.4-8.2) g/dL Albumin (3.4-5.0) g/dL Globulin (2.6-4.0) g/dL Albumin/Globulin Ratio (0.9-1.6) Urine Color Urine Appearance Urine pH (5.0-8.0) Ur Specific [place] (1.001-1.035) Urine Protein (NEGATIVE) mg/dL Urine Glucose (UA) (NEGATIVE) mg/dL Urine Ketones (NEGATIVE) mg/dL Urine Occult Blood (NEGATIVE) Urine Nitrite (NEGATIVE) Urine Bilirubin (NEGATIVE) Urine Urobilinogen (<2.0) EU/dL Ur Leukocyte Esterase (NEGATIVE) Urine RBC (0-2/HPF) Urine WBC (0-5/HPF) Ur Epithelial Cells (NONE-FEW) Urine Bacteria (NEGATIVE) Urine Mucus (NONE-MOD) 03/06/19 03/06/19 03/06/19 Range/Units 05:13 05:13 05:13 WBC 10.49 (4.0-11.0) K/uL RBC 4.18 L 4.06 L (4.30-5.90) M/uL Hgb 12.0 (12.0-16.0) g/dL Hct 34.7 L (36.0-46.0) % MCV 83.0 (80.0-98.0) fL MCH 28.7 (27.0-32.0) pg MCHC 34.6 (31.0-37.0) g/dL RDW Std Deviation 45.3 (28.0-62.0) fl RDW Coeff of Analisa 15 (11.0-15.0) % Plt Count 124 L (150-400) K/uL MPV 13.20 H (7.40-12.00) fL Neut % (Auto) 87.7 H (48.0-80.0) % Lymph % (Auto) 11.1 L (16.0-40.0) % [place] % (Auto) 1.2 (0.0-15.0) % Eos % (Auto) 0.0 (0.0-7.0) % Baso % (Auto) 0.0 (0.0-1.5) % Neut # (Auto) 9.2 H (1.4-5.7) K/uL Lymph # (Auto) 1.2 (0.6-2.4) K/uL [place] # (Auto) 0.1 (0.0-0.8) K/uL Eos # (Auto) 0.0 (0.0-0.7) K/uL Baso # (Auto) 0.0 (0.0-0.1) K/uL Nucleated RBC % 0.0 /100WBC Nucleated RBCs # 0 K/uL ESR (0-19) mm/hr Absolute Retic 85.30 H (20-80) K/uL Percent Retic 2.1 H (0.5-1.5) % Immature Retic Fraction 2 % Sodium 129 L (136-145) mmol/L Potassium 7.2 H* (3.5-5.1) mmol/L Chloride 104 (98-107) mmol/L Carbon Dioxide 17.6 L (21.0-32.0) mmol/L BUN 75 H (7.0-18.0) mg/dL Creatinine 1.3 H (0.6-1.0) mg/dL Est Cr Clr Drug Dosing 47.93 mL/min Estimated GFR (MDRD) 50.3 ml/min Glucose 130 H (74-106) mg/dL POC Glucose (60-110) mg/dL Calcium 7.6 L (8.5-10.1) mg/dL Total Bilirubin (0.2-1.0) mg/dL AST (15-37) IU/L ALT (14-63) IU/L Alkaline Phosphatase (46-116) U/L Lactate Dehydrogenase (81-234) U/L Troponin I (0.000-0.056) ng/mL C-Reactive Protein (0.00-0.90) mg/dL Total Protein (6.4-8.2) g/dL Albumin (3.4-5.0) g/dL Globulin (2.6-4.0) g/dL Albumin/Globulin Ratio (0.9-1.6) Urine Color Urine Appearance Urine pH (5.0-8.0) Ur Specific [place] (1.001-1.035) Urine Protein (NEGATIVE) mg/dL Urine Glucose (UA) (NEGATIVE) mg/dL Urine Ketones (NEGATIVE) mg/dL Urine Occult Blood (NEGATIVE) Urine Nitrite (NEGATIVE) Urine Bilirubin (NEGATIVE) Urine Urobilinogen (<2.0) EU/dL Ur Leukocyte Esterase (NEGATIVE) Urine RBC (0-2/HPF) Urine WBC (0-5/HPF) Ur Epithelial Cells (NONE-FEW) Urine Bacteria (NEGATIVE) Urine Mucus (NONE-MOD) 03/06/19 03/06/19 Range/Units 05:13 08:10 WBC (4.0-11.0) K/uL RBC (4.30-5.90) M/uL Hgb (12.0-16.0) g/dL Hct (36.0-46.0) % MCV (80.0-98.0) fL MCH (27.0-32.0) pg MCHC (31.0-37.0) g/dL RDW Std Deviation (28.0-62.0) fl RDW Coeff of Analisa (11.0-15.0) % Plt Count (150-400) K/uL MPV (7.40-12.00) fL Neut % (Auto) (48.0-80.0) % Lymph % (Auto) (16.0-40.0) % [place] % (Auto) (0.0-15.0) % Eos % (Auto) (0.0-7.0) % Baso % (Auto) (0.0-1.5) % Neut # (Auto) (1.4-5.7) K/uL Lymph # (Auto) (0.6-2.4) K/uL [place] # (Auto) (0.0-0.8) K/uL Eos # (Auto) (0.0-0.7) K/uL Baso # (Auto) (0.0-0.1) K/uL Nucleated RBC % /100WBC Nucleated RBCs # K/uL ESR (0-19) mm/hr Absolute Retic (20-80) K/uL Percent Retic (0.5-1.5) % Immature Retic Fraction % Sodium 132 L (136-145) mmol/L Potassium 5.0 (3.5-5.1) mmol/L Chloride 102 (98-107) mmol/L Carbon Dioxide 15.8 L (21.0-32.0) mmol/L BUN 74 H (7.0-18.0) mg/dL Creatinine 1.5 H (0.6-1.0) mg/dL Est Cr Clr Drug Dosing 41.54 mL/min Estimated GFR (MDRD) 42.7 ml/min Glucose 137 H (74-106) mg/dL POC Glucose (60-110) mg/dL Calcium 8.2 L (8.5-10.1) mg/dL Total Bilirubin (0.2-1.0) mg/dL AST (15-37) IU/L ALT (14-63) IU/L Alkaline Phosphatase (46-116) U/L Lactate Dehydrogenase 308 H (81-234) U/L Troponin I (0.000-0.056) ng/mL C-Reactive Protein (0.00-0.90) mg/dL Total Protein (6.4-8.2) g/dL Albumin (3.4-5.0) g/dL Globulin (2.6-4.0) g/dL Albumin/Globulin Ratio (0.9-1.6) Urine Color Urine Appearance Urine pH (5.0-8.0) Ur Specific [place] (1.001-1.035) Urine Protein (NEGATIVE) mg/dL Urine Glucose (UA) (NEGATIVE) mg/dL Urine Ketones (NEGATIVE) mg/dL Urine Occult Blood (NEGATIVE) Urine Nitrite (NEGATIVE) Urine Bilirubin (NEGATIVE) Urine Urobilinogen (<2.0) EU/dL Ur Leukocyte Esterase (NEGATIVE) Urine RBC (0-2/HPF) Urine WBC (0-5/HPF) Ur Epithelial Cells (NONE-FEW) Urine Bacteria (NEGATIVE) Urine Mucus (NONE-MOD) Med Orders - Current: Current Medications Sodium Chloride (Normal Saline) 1,000 mls @ 125 mls/hr IV STAT YIN Last Admin: 03/06/19 03:35 Dose: 125 mls/hr Discontinued Medications Albuterol (Proventil Neb Soln) 10 mg NEB ONETIME ONE Stop: 03/06/19 06:45 Last Admin: 03/06/19 07:23 Dose: 10 mg Albuterol (Proventil Neb Soln) Confirm Administered Dose 2.5 mg .ROUTE .STK-MED ONE Stop: 03/06/19 07:12 Last Admin: 03/06/19 07:26 Dose: Not Given Albuterol (Proventil Neb Soln) Confirm Administered Dose 2.5 mg .ROUTE .STK-MED ONE Stop: 03/06/19 07:13 Last Admin: 03/06/19 07:24 Dose: Not Given Calcium Gluconate (Calcium Gluconate) 1 gm IVPUSH ONETIME ONE Stop: 03/05/19 20:38 Last Admin: 03/05/19 20:48 Dose: 1 gm Calcium Gluconate (Calcium Gluconate) 1 gm IVPUSH ONETIME ONE Stop: 03/06/19 06:39 Last Admin: 03/06/19 06:53 Dose: 1 gm Dextrose/Water (Dextrose 50% In Water) 50 ml IVPUSH ONETIME ONE Stop: 03/05/19 20:48 Last Admin: 03/05/19 21:02 Dose: 50 ml Dextrose/Water (Dextrose 50% In Water) 50 ml IVPUSH ONETIME ONE Stop: 03/06/19 06:02 Last Admin: 03/06/19 06:40 Dose: 50 ml Furosemide (Lasix) 10 mg IVPUSH NOW ONE Stop: 03/05/19 20:38 Last Admin: 03/05/19 20:47 Dose: 10 mg Furosemide (Lasix) 40 mg IVPUSH NOW ONE Stop: 03/06/19 06:27 Last Admin: 03/06/19 06:46 Dose: 40 mg Calcium Gluconate 1 gm/ Sodium (Chloride) 60 mls @ 120 mls/hr IV NOW ONE Stop: 03/06/19 06:52 Insulin Human Regular (Novolin R) 5 unit SUBCUT NOW STA; Protocol Stop: 03/05/19 20:47 Last Admin: 03/05/19 21:05 Dose: 5 unit Insulin Human Regular (Novolin R) 10 unit IVPUSH ONETIME ONE; Protocol Stop: 03/06/19 06:03 Last Admin: 03/06/19 06:41 Dose: 10 units Methylprednisolone Sodium Succinate (Solu-Medrol) 125 mg IVPUSH ONETIME ONE Stop: 03/05/19 23:07 Last Admin: 03/05/19 23:29 Dose: 125 mg Sodium Polystyrene Sulfonate (Kayexalate) 15 gm PO ONETIME ONE Stop: 03/06/19 06:37 Last Admin: 03/06/19 06:59 Dose: 15 gm
== END 2019-03-06 12:25 ==
LOC: MW.ED 19:18 → MW.MS 20:48
PROVIDERS: ADMIT Internal Medicine; ATTEND Internal Medicine
DX: E87.1 Hypo-osmolality and hyponatremia (principal); E87.5 Hyperkalemia; I10 Essential (primary) hypertension; N28.9 Disorder of kidney and ureter, unspecified; Z79.899 Other long term (current) drug therapy
CPT/HCPCS: 36415; 70450; 71045; 80048; 80053; 81001; 82962; 83010; 83615; 84484; 85025; 85045; 85652; 86140; 87086; 93005; 94640; 96361; 96374; 96375; 99285; A9270; J0610; J1815; J1940; J2930; J7040; J7060; 96376; G0378